=== PATIENT | female | born 1965 | race Caucasian/White ===

== ENCOUNTER 2022-04-18 08:14 | Outpatient (CLI) | payer OTHER, SELFPAY ==
--- NOTE | 2022-04-18 08:15 | CRLHL7_ITS ---
For Patients: As a result of the Century Cures Act, medical imaging exams and procedure reports are released immediately into your electronic medical record. You may view this report before your referring provider. If you have questions, please contact your health care provider. Final Report: ULTRASOUND-GUIDED LEFT BREAST BIOPSY AND POST-BIOPSY DIGITAL MAMMOGRAM FOR BIOPSY MARKER PLACEMENT, 04/18/2022 CLINICAL HISTORY: Suspicious lesion. COMPARISON STUDIES: Ultrasound and mammogram 04/16/22. TECHNIQUE: Real-time ultrasound with image documentation was used for targeting the breast lesion. Core biopsy specimens were obtained using an automated gun with a 18- gauge biopsy needle. Post-biopsy CC and ML digital mammograms were obtained to document position of the biopsy marker. CONSENT and TIME OUT: The procedure, risks, and alternatives were explained to the patient and a consent was signed. [place] Protocol was followed including pre-procedure verification that relevant information/documentation was available, reviewed and properly matched to the patient; consent accurate and complete; and equipment and supplies available. Time Out was conducted just prior to starting procedure to verify the four required elements: patient identity, correct side/site marked (if applicable), procedure, relevant images/results properly labeled and displayed (if applicable). PROCEDURE: The patient was positioned supine on the ultrasound table. The breast was prepped with ChloraPrep. 8 cc 1 percent lidocaine used for local anesthesia. Core samples were obtained. A sterile metal biopsy clip was placed percutaneously to libby the lesion position within the breast. The specimens were placed in 10% formalin and sent to the pathology department. Pressure was held on the biopsy site until all bleeding subsided. The skin incision was closed with Steri-Strips. An ice pack was positioned over the biopsy site. Post-biopsy instructions were reviewed with the patient, and a written copy was given to her. LATERALITY: LEFT breast. LESION: Solid nodule with adjacent distortion measuring 5 x 4 x 5 millimeters at 9 o`clock 1 cm from the nipple. SUSPICION FOR MALIGNANCY: High. NUMBER OF SAMPLES: 6 BIOPSY CLIP SHAPE: Coil PROXIMITY OF CLIP TO TARGET: Within. IMPRESSION: Ultrasound-guided breast biopsy. When the pathology report is available, an addendum to this report will be made. ACR not applicable Dictated by Rufino Sarabia MD @ 04/18/2022 10:14:52 AM PT/Dictated by: Rufino Sarabia MD @ 04/18/2022 10:14:00 AM ----- ADDENDUM ----- Pathology consistent with grade 1/3 invasive ductal carcinoma. This is concordant. Appropriate action recommended. Pretreatment breast MRI is suggested. Dictated by Rufino Sarabia MD @ Apr 18 2022 10:14AM Signed by:?Rufino Sarabia MD @04/18/2022 12:52:03 PM (Electronic Signature)
--- NOTE | 2022-04-18 09:00 | CRLHL7_ITS ---
For Patients: As a result of the Century Cures Act, medical imaging exams and procedure reports are released immediately into your electronic medical record. You may view this report before your referring provider. If you have questions, please contact your health care provider. PLEASE SEE LEFT ULTRASOUND-GUIDED BIOPSY OF SAME DAY. CRL:bhe be/Dictated by: Rufino Sarabia MD @ 04/18/2022 10:14:00 AM (Electronically Signed)
== END 2022-04-18 08:15 | disposition home or self-care (01) ==
PROVIDERS: PCP Student in an Organized Health Care Education/Training Program; Visit Provider Student in an Organized Health Care Education/Training Program
DX: N63.20 Unspecified lump in the left breast, unspecified quadrant (principal); C50.912 Malignant neoplasm of unspecified site of left female breast; R92.8 Other abnormal and inconclusive findings on diagnostic imaging of breast
CPT/HCPCS: 19083; 76942; 77065; 88305; 88360; 88361; A4648; A4649

== ENCOUNTER 2022-04-29 13:01 | Outpatient (CLI) | payer OTHER, SELFPAY ==
--- NOTE | 2022-04-29 13:00 | CRLHL7_ITS ---
For Patients: As a result of the 21st Century Cures Act, medical imaging exams and procedure reports are released immediately into your electronic medical record. You may view this report before your referring provider. If you have questions, please contact your health care provider. BILATERAL BREAST MRI WITHOUT AND WITH GADOLINIUM, 04/29/2022 CLINICAL HISTORY: 56-year-old woman with newly diagnosed LEFT breast invasive ductal carcinoma 9 o???clock 1 cm from the nipple. She underwent an ultrasound-guided biopsy of 0.8 cm irregular lobulated spiculated and distinct hypoechoic mass. INDICATION FOR BREAST MRI: Staging of newly diagnosed breast cancer and screening of contralateral breast. Regional lymph nodes will also be assessed. COMPARISON STUDIES: Mammogram 04/10/2022. CONTRAST: 15 cc Dotarem. TECHNIQUE: The patient was positioned prone using a breast coil. Multiple imaging sequences were obtained using 1-1.5 mm thick slices with no gap. The image sequences include T2-weighted STIR in the axial plane, T1-weighted nonfat-saturated gradient echo in the axial plane, pre- and post-contrast T1-weighted FLASH 3D with fat suppression in the axial plane, and T1-weighted FLASH high-resolution 3D with fat suppression in the sagittal plane. Image post-processing was performed on a [employer] workstation. Complex 3D rendering including maximum intensity projections (MIPS) and volumetric renderings were obtained to optimize visualization of the extent of pathology and relationship to the nipple, skin, and chest wall. This aids in determining feasibility of breast conservation surgery. Subtraction, multiplanar reconstruction, mean curve determination, and angiogenesis mapping were also performed. The study was technically adequate. FINDINGS: Breast Density: Scattered fibroglandular tissue. Breast Background Enhancement: Mild. RIGHT Breast: No suspicious enhancement for malignancy. LEFT Breast: Mass enhancement central LEFT breast measures approximately 0.8 x 0.9 x 1.1 cm. There is biopsy clip associated with this abnormal enhancement. This corresponds to the biopsy-proven malignancy. No suspicious enhancement elsewhere LEFT breast. Lymph Nodes: Axillary lymph nodes are normal in size and morphology. IMPRESSIONS AND RECOMMENDATIONS: 1) Mass enhancement central LEFT breast measuring approximately 1.1 cm in greatest dimension, corresponds to the biopsy-proven malignancy. No evidence for malignancy elsewhere LEFT breast. 2) No evidence for malignancy RIGHT breast. 3) Axillary lymph nodes are preserved. 4) Recommend surgical/oncologic management. BI-RADS: BI-RADS Category 6: Known Biopsy-Proven Malignancy Liat Ramirez M.D. Body/Breast Radiologist [email or web address] JR/Dictated by: Liat Ramirez MD @ 04/30/2022 10:03:00 AM (Electronically Signed)
== END 2022-04-29 13:02 | disposition home or self-care (01) ==
PROVIDERS: PCP Student in an Organized Health Care Education/Training Program; Visit Provider Surgery
DX: C50.912 Malignant neoplasm of unspecified site of left female breast (principal); R59.9 Enlarged lymph nodes, unspecified
CPT/HCPCS: 77049; A9575

== ENCOUNTER 2022-05-03 12:15 | Outpatient (RCR) | payer OTHER, SELFPAY | END 2023-04-16 11:27 | disposition home or self-care (01) | PROVIDERS: PCP Student in an Organized Health Care Education/Training Program; Visit Provider Surgery | DX: I97.2 Postmastectomy lymphedema syndrome (principal); C50.312 Malignant neoplasm of lower-inner quadrant of left female breast; Z17.0 Estrogen receptor positive status [ER+]; Z51.89 Encounter for other specified aftercare ==

== ENCOUNTER 2022-05-07 07:48 | Day surgery (SDC) | payer OTHER, SELFPAY ==
[2022-05-07] MEDS: LACTATED RINGERS 1000 ML 1,000 ML 100 ML IV ×2 (08:00→11:25)
[2022-05-07 08:08] VITALS: BP 116/72; PULSE 69; RESP 16; TEMP 36.8; O2SAT 95; BMI 22.8
[2022-05-07] MEDS: ETHYL CHLORIDE 1 APPLICATION 1 APPLIC TOPICAL (08:23)
[2022-05-07] MEDS: SODIUM CHLORIDE 0.9 % (FLUSH) 10 ML SYRINGE IVF (08:23)
--- NOTE | 2022-05-07 09:00 | CRLHL7_ITS ---
For Patients: As a result of the Century Cures Act, medical imaging exams and procedure reports are released immediately into your electronic medical record. You may view this report before your referring provider. If you have questions, please contact your health care provider. HISTORY: 56-year-old female. Left breast cancer. TECHNIQUE: Following lidocaine injection, 1.0 millicuries of [id number] sulfur colloid was injected in the left breast for sentinel lymph node localization. Images were not obtained. Dictated by Peter Carson MD @ 05/07/2022 9:29:26 AM (Electronically Signed)
--- NOTE | 2022-05-07 09:15 | CRLHL7_ITS ---
For Patients: As a result of the Century Cures Act, medical imaging exams and procedure reports are released immediately into your electronic medical record. You may view this report before your referring provider. If you have questions, please contact your health care provider. BREAST WIRE LOCALIZATION USING ULTRASOUND GUIDANCE CLINICAL HISTORY: Invasive ductal carcinoma. LATERALITY: LEFT breast 9 o`clock 1 cm from the nipple . LESION: Hypoechoic spiculated mass measuring 5 x 4 x 5 millimeters. LOCALIZATION WIRE: [place] hookwire. TECHNIQUE: The localization wire was placed using real-time ultrasound guidance with image documentation. Cranial-caudal and medial-lateral digital mammograms were obtained after localization wire placement. CONSENT and TIME OUT: The procedure, risks, and alternatives were explained to the patient and a consent was signed. [place] Protocol was followed including pre-procedure verification that relevant information/documentation was available, reviewed and properly matched to the patient; consent accurate and complete; and equipment and supplies available. Time Out was conducted just prior to starting procedure to verify the four required elements: patient identity, correct side/site marked (if applicable), procedure, relevant images/results properly labeled and displayed (if applicable). PROCEDURE: The skin was prepped with ChloraPrep and 3 cc of 1% lidocaine was injected for local anesthesia. The localization wire was placed within or near the targeted breast lesion using ultrasound guidance. The patient tolerated the procedure well. PROXIMITY OF WIRE TO LESION: Immediately adjacent to the lesion and clip. Reviewed with Dr. Montes. IMPRESSION: Successful breast wire localization. ACR not applicable A lay language report of this examination will be provided to the patient. Dictated by Rufino Sarabia MD @ 05/07/2022 10:25:14 AM /Dictated by: Rufino Sarabia MD @ 05/07/2022 10:25:00 AM (Electronically Signed)
--- NOTE | 2022-05-07 09:58 | CRLHL7_ITS ---
For Patients: As a result of the Cures Act, medical imaging exams and procedure reports are released immediately into your electronic medical record. You may view this report before your referring provider. If you have questions, please contact your health care provider. LEFT BREAST SPECIMEN RADIOGRAPH INDICATION: Lumpectomy TECHNIQUE: Two images of the LEFT breast specimen. IMPRESSION: Specimen contains the primary lesion, the biopsy clip and the localization wire. ACR not applicable A lay language report of this examination will be provided to the patient. Dictated by Rufino Sarabia MD @ 05/07/2022 11:43:44 AM jj/Dictated by: Rufino Sarabia MD @ 05/07/2022 11:43:00 AM (Electronically Signed)
--- NOTE | 2022-05-07 10:00 | CRLHL7_ITS ---
For Patients: As a result of the Cures Act, medical imaging exams and procedure reports are released immediately into your electronic medical record. You may view this report before your referring provider. If you have questions, please contact your health care provider. PLEASE SEE ULTRASOUND-GUIDED LEFT BREAST WIRE LOCALIZATION PERFORMED SAME DAY CRL:ayde messer/Dictated by: Rufino Sarabia MD @ 05/07/2022 10:25:00 AM (Electronically Signed)
[2022-05-07] MEDS: BUPIVACAINE 0.25% 30 ML INJECTION (11:15)
--- NOTE | 2022-05-07 11:16 | P.GSOP_ITS ---
Operative Note Date of procedure: 05/07/22 Type of Procedure: 1. Left breast lumpectomy 2. [place] lymph node biopsy Procedure Description: After discussing the risks and benefits of the procedure, the patient signed informed consent.? The operative site was marked and the patient was brought to the operating room and placed on the operating table in supine position.? Care was taken to pad the patient's pressure points.?? The patient was then given sedation by anesthesia.?? The operative site was then prepped and draped in the usual sterile fashion.? A time-out was then performed. Prior to arrival in the operating room, the patient was taken to radiology where a wire was placed to localize the previously placed clip. In that pre op I injection radiocolloid periareolar. The patient was then brought to the operating room where anesthesia was induced. I injected 3 ml of lymphazurin blue and performed breast massage for a period of 5 minutes. The left breast and axilla were prepped and draped in the usual sterile fashion. Timeout was confirmed. Local anesthesia was infiltrated into a curvilinear incision in the 6:00 position at the location near the tip of the wire. Using electrocautery, the segment of breast tissue containing the tip of the wire was excised. This was sent for evaluation. Radiology called back and confirmed that the clip, wire and biopsy site were present within the specimen. Pathology then called back and confirmed that the margins were appropriate. We then elected to perform the sentinel node aspect of the procedure. Using the neoprobe, the area of maximal counts was identified. Local anesthesia was infiltrated into the skin and an incision was made. This was carried down to the subcutaneous tissue using electrocautery. Using a combination of blunt dissection and electrocautery, a hot and blue node was resected. One additional node was resected in a similar fashion, taking care to tie off the lymphatics. These were sent to pathology for permanent evaluation. Additional local anesthesia was infiltrated. Hemostasis was assured. The wounds were then closed in layers using absorbable suture, and Dermbond was placed over the wounds. An Karl bandage was used to compress the tissues and decrease the risk of seroma formation. The patient was awakened without incident and taken to PACU in stable condition. Sponge, needle and instrument counts were correct x3 at the termination of the case. Findings: [place] node biopsy was performed using Isosulfan blue dye and radiotracer; all identified blue and significantly radioactive nodes as well as any additional suspicious nodes were removed. A left breast lumpectomy was performed with confirmation of wire and clip. Pathology confirmed negative margins. Anesthesia: MAC and local Surgeon: Irma Montes MD Estimated blood loss (mL): 10 Condition: stable Disposition: same day
[2022-05-07] MEDS: ISOSULFAN BLUE 5 ML VIAL 10 ML SUBCUT (11:20)
[2022-05-07 11:35] VITALS: BP 125/86; PULSE 77; RESP 16; TEMP 36.2; O2SAT 95
--- NOTE | 2022-05-07 11:40 | W.ANESCHARGE ---
Anesthesia Charges Start Date/Time Anesthesia Start Date: 05/07/22 Anesthesia Start Time: 10:03 Stop Date/Time Anesthesia Stop Date: 05/07/22 Anesthesia Stop Time: 11:36 Summary Emergency: No
[2022-05-07 11:45] VITALS: BP 137/65; PULSE 70; RESP 16; O2SAT 95
--- NOTE | 2022-05-07 11:45 | W.ANESCHARGE ---
Anesthesia Charges Start Date/Time Anesthesia Start Date: 05/07/22 Anesthesia Start Time: 10:03 Stop Date/Time Anesthesia Stop Date: 05/07/22 Anesthesia Stop Time: 11:36 Summary Emergency: No
[2022-05-07 12:00] VITALS: BP 139/86; PULSE 73; RESP 16; O2SAT 98
[2022-05-07] MEDS: OXYCODONE 5 MG TABLET PO ×2 (12:06→12:41)
[2022-05-07 12:15] VITALS: BP 147/84; PULSE 65; RESP 16; O2SAT 98
[2022-05-07 12:30] VITALS: BP 151/76; PULSE 58; RESP 16; O2SAT 96
== END 2022-05-07 13:28 | disposition home or self-care (01) ==
LOC: OR 11:24 → SS 12:31 → OR 13:02
PROVIDERS: PCP Student in an Organized Health Care Education/Training Program; Visit Provider Surgery
PROC: (CPT 19301; principal; 2022-05-07 10:00)
DX: C50.912 Malignant neoplasm of unspecified site of left female breast (principal); Z17.0 Estrogen receptor positive status [ER+]
CPT/HCPCS: 19301; 38500; 00400; 01610; 19285; 38792; 76942; 77065; 88307; 88341; 88342; 88361; 97165; 97535; A9270; A9541; C1769; J2250; J2704; J3010; J3490; J7120

== ENCOUNTER 2022-07-17 13:00 | Outpatient (CLI) | payer OTHER, SELFPAY ==
--- NOTE | 2022-07-17 13:00 | CRLHL7_ITS ---
For Patients: As a result of the Cures Act, medical imaging exams and procedure reports are released immediately into your electronic medical record. You may view this report before your referring provider. If you have questions, please contact your health care provider. DXA BONE MINERAL DENSITY STUDY, 07/17/2022 Reason for exam: Malignant neoplasm of left breast. Current height (inches): 61 Weight (lbs.): 125.0 Menopause age: 55 Ethnicity: White 1. Have you had a previous hip or vertebral fracture? No. 2. Have you had any fractures during your adult life which did not result from significant trauma (e.g., auto accident)? No. 3. Did either of your parents have a hip fracture? No. 4. Do you smoke? Yes. 5. Have you ever taken Glucocorticoids? No. 6. Do you have rheumatoid arthritis? Yes. 7. Do you have secondary osteoporosis? No. 8. Do you drink 3 or more alcoholic drinks per day? No. 9. Are you being treated for osteoporosis? No. 10. Have you ever taken any of the following medications: Actonel, Evista, Fosamax, Miacalcin, Reclast, Boniva, Forteo, HRT (i.e., estrogen/hormone therapy), Protelos, Prolia, Vitamin D, Calcium, other ??? please specify. ANSWER: Yes; vitamin D and calcium. 11. Do you have any of the following medical conditions: Anorexia or bulimia, asthma or emphysema, end stage renal disease, hyperparathyroidism, any seizure disorders, cancer, inflammatory bowel diseases, hysterectomy, other ??? please specify. ANSWER: No. 12. What was your maximum height (inches)? 63. 13. Do you perform weight bearing exercise regularly? Yes. 14. Do you regularly consume dairy products? Yes. 15. Do you drink caffeinated beverages? Yes. 16. At what age did your period start? 15. 17. Are you premenopausal? No. 18. How many full-term pregnancies have you had? 3. 19. Have you ever missed your period for more than 6 months in a row (not including or menopause)? Yes. TECHNIQUE: Bone mineral density study was performed using the [employer]. FINDINGS: The results of the study expressed as bone mineral density (BMD) are as follows: Lumbar Spine L1 to L4: BMD: 1.034 g/cm2. T-score: -0.1. Z-score: 1.1. Neck Left: BMD: 0.762 g/cm2. T-score: -0.8. Z-score: 0.4. Right: BMD: 0.715 g/cm2. T-score: -1.2. Z-score: 0.0. Total Left: BMD: 0.938 g/cm2. T-score: 0.0. Z-score: 0.8. Right: BMD: 0.920 g/cm2. T-score: -0.2. Z-score: 0.6. IMPRESSION: Osteopenia. FRAX 10-year Fracture Risk Major Osteoporotic Fracture: 8.5% Hip Fracture: 1.0% Reported Risk Factors: [place] () Neck BMD = 0.715, BMI = 32.6, smoking, rheumatoid arthritis. RUFINO TOWNSEND M.D. Diagnostic Radiologist [email or web address] Transcribed: 4:[address]/Dictated by: Rufino Townsend MD @ 07/17/2022 3:42:00 PM (Electronically Signed)
--- OUTSIDE RECORDS SUMMARY | 2022-07-17 13:09 | XMS_ITS | Encounter Summary ---
:1965 Author Organization [facility] Address [address] [place] [id number] Care Team Providers Name Role Phone Unavailable Primary Care Provider Unavailable Reason for Visit Radiation Therapy (Routine) - Authorized Specialty Diagnoses / Procedures Referred By Contact Refer red To Contact Diagnoses Malignant Neoplasm Of Breast Lower Inner Quadrant Female Left (HCC) Gabriella Garza M.D. [facility] Procedures Prior Auth Rad Tx [place] RADTN [place] DEL >=1 MEV COMPLEX [address] [place] [address] Referral ID Status Reason Start Date Expiration Date Visits V isits Requested Authorized [id number] Authorized 06/10/2022 05/15/2023 19 19 Encounter Details Date Type Department Care Team Description 06/13/2022 Hospital Encounter Department of Radiation [facility] [place] [address] [facility] [address] [place] [id number] [phone] Social History Tobacco Use Types Packs/Day Years Used Date Smoking Tobacco: Former Cigarettes 1 40 Quit : 04/28/2022 Smokeless Tobacco: Never Alcohol Use Standard Drinks/Week Comments Not Currently 0 (1 standard drink = 0.6 oz pure alcoho l) Occasional alcohol recently Sex Assigned at Date Recorded Not on file documented as of this encounter Medications at Time of Discharge Medication Sig Dispensed Refills Start Date End Date albuterol 90 mcg/actuation Inhale 1-2 puffs. 0 inhaler folic acid 1 mg tablet Take 1 mg by mouth 0 03/06 daily. ibuprofen (ADVIL,MOTRIN) 0 02/07/2022 200 mg tablet methotrexate 2.5 mg tablet Take 15 mg by mouth. 0 03/06/2022 predniSONE (DELTASONE) 5 Take 3 tablets x 5 0 04/2022 mg tablet days, 2 tabs x 5 days, 1 tab x 5 days, then stop. As needed flare. documented as of this encounter Plan of Treatment Not on filedocumented as of this encounter Visit Diagnoses Not on filedocumented in this encounter
--- OUTSIDE RECORDS SUMMARY | 2022-07-17 13:09 | XMS_ITS | Encounter Summary ---
:1965 Author Organization [facility] Address [address] [place] [id number] Care Team Providers Name Role Phone Unavailable Primary Care Provider Unavailable Reason for Visit Radiation Therapy (Routine) - Authorized Specialty Diagnoses / Procedures Referred By Contact Refer red To Contact Diagnoses Malignant Neoplasm Of Breast Lower Inner Quadrant Female Left (HCC) Gabriella Garza M.D. [facility] Procedures Prior Auth Rad Tx [place] RADTN TX DEL >=1 MEV COMPLEX [address] [place] [address] Referral ID Status Reason Start Date Expiration Date Visits V isits Requested Authorized [id number] Authorized 06/10/2022 05/15/2023 19 19 Encounter Details Date Type Department Care Team Description 06/14/2022 Hospital Encounter Department of Radiation Art [facility] I[facility] [place] [address] [facility] [address] [place] [id number] [phone] Social History Tobacco Use Types Packs/Day Years [...]
--- OUTSIDE RECORDS SUMMARY | 2022-07-17 13:09 | XMS_ITS | Clinical Summary ---
:1965 Author Organization [employer] [facility] [place] [address] Care Team Providers Name Role Phone Donya Ortez Primary Care Provider Malik Clark RN Unavailable Allergies Active Allergy Reactions Severity Noted Date Comments Bupropion Behavioral Disturbances 11/26/2011 suic idal Sertraline Behavioral Disturbances 11/27/2011 Medications Medication Sig Dispensed Refills Start End Date Status Date albuterol HFA Inhale 1-2 Puffs 1 Each 0 Active (PRO-AIR; by mouth every 4 2 VENTOLIN; hours if needed PROVENTIL) 90 for Shortness of mcg/actuation Breath 1st inhalerIndication choice. s: Wheezing, Cough, Post-viral reactive airway disease ibuprofen (ADVIL; 0 Ac tive MOTRIN) 200 mg 2 tablet folic acid 1 mg Take 1 Tablet (1 90 Tablet 3 Active tabletIndications mg) by mouth once 2 : Rheumatoid daily. arthritis involving both feet with positive rheumatoid factor (HC) predniSONE Take 3 tablets x 30 Tablet 1 Ac tive (DELTASONE) 5 mg 5 days, 2 tabs x 2 tabletIndications 5 days, 1 tab x 5 : Rheumatoid days, then stop. arthritis As needed flare. involving both feet with positive rheumatoid factor (HC) methotrexate Take 6 Tablets 77 Tablet 0 Ac tive (RHEUMATREX) 2.5 (15 mg) by mouth 2 mg once weekly. tabletIndications : Rheumatoid arthritis involving both feet with positive rheumatoid factor (HC) adalimumab 40 Inject 40 mg 2 Each 2 Act zenon mg/0.4 mL subcutaneous 2 pnktIndications: every 2 weeks. Rheumatoid Citrate free arthritis involving both feet with positive rheumatoid factor (HC) methotrexate Take 15 mg by 30 Tablet 2 07/15/20 Dis continued (RHEUMATREX) 2.5 mouth once 2 22 (R eorder mg weekly. (E-cancel not tabletIndications se nt)) : Rheumatoid arthritis involving both feet with positive rheumatoid factor (HC) predniSONE Take 3 tablets x 30 Tablet 1 07/15/20 Di scontinued (DELTASONE) 5 mg 5 days, 2 tabs x 2 22 (Reorder tabletIndications 5 days, 1 tab x 5 (E-cancel not : Rheumatoid days, then stop. sent)) arthritis As needed flare. involving both feet with positive rheumatoid factor (HC) methotrexate Take 6 Tablets 30 Tablet 2 07/15/20 Di scontinued (RHEUMATREX) 2.5 (15 mg) by mouth 2 22 (Reorder mg once weekly. (E-canc el not tabletIndications se nt)) : Rheumatoid arthritis involving both feet with positive rheumatoid factor (HC) adalimumab 40 Inject 40 mg 2 Each 2 07/17/20 Dis continued mg/0.4 mL subcutaneous 2 22 (Reorde r pnktIndications: every 2 weeks. 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 Plan:Routine screening Degenerative arthritis of spine Encounters Date Type Specialty Care Team Description 07/16/2022 Telephone Duarte Wong, Prior Au thorization DO (HUMIRA adalimu mab 40 mg/0.4 mL pnkt) 07/15/2022 Telemedicine Duarte Wong, Teleheal th (No vitals DO taken); Follow Up (RA discuss Treatme nt) 07/15/2022 Telephone Duarte Wong Medicati on Problem DO 07/15/2022 Travel 06/07/2022 Office Visit Beatrice Stark, SENIOR TERADATA DEVELOPER Consult (Lo w dose lung screening) 06/07/2022 Hospital Encounter Beatrice Stark, JERONIMO Encou nter for screening for malignant n eoplasm of lung in form er smoker who quit in pas t 15 years with 30 p ack year history or grea ter 06/07/2022 Travel 06/06/2022 Telephone Duarte Wong, Question s; Screening DO (Cancel / Carolina edule) 05/28/2022 Office Visit Irma Montes Post-op (Left b connie Farfan MD lumpectomy-sent inel lymph node biop sy 05/07/22) 05/28/2022 Travel 05/15/2022 Orders Only Staff, Other <No scans attac hed> Clinical 05/09/2022 Orders Only Irma Montes <No scans attac hed> MD Naheed 05/07/2022 Office Visit Irma Montes MD 05/07/2022 Orders Only Scanner <No scans attac hed> 05/07/2022 Orders Only Scanner <No scans attac hed> 05/07/2022 Orders Only Staff, Other <No scans attac hed> Clinical 05/07/2022 Lab Requisition Irma Montes MD 05/07/2022 Lab Requisition Irma Montes MD 05/07/2022 Travel 05/01/2022 Telephone Duarte Wong, Question s DO 05/01/2022 Transcribe Orders Irma Montes MD 04/30/2022 Office Visit Irma Montes Consult (Left b connie Farfan MD cancer) 04/30/2022 Travel 04/29/2022 Orders Only Scanner <No scans attac hed> 04/29/2022 Telephone Beatrice Stark, SENIOR TERADATA DEVELOPER Referral 04/26/2022 Office Visit Donya Ortez DO Physical (5 7 years old female ); Cance r (Had biopsy - positi ve for breast cancer - plans to stay with [facility] - has an MRI 04/29 and Surgeon consult 04/30 ); Preopera tive Exam (Would like a p ian done - meets with nelson casillas 04/30 as well - unsur e of surgery ); Ambrose ashely Dependence (Hop ing to quit on Saturday 04/28 - will start usin g the patch ) 04/26/2022 Travel 04/23/2022 Orders Only Donya Ortez, DO <No scans a ttached> 04/19/2022 Telephone Donya Ortez, DO Results 04/18/2022 Orders Only Scanner <No scans attac hed> 04/18/2022 Orders Only Scanner <No scans attac hed> 04/18/2022 Lab Requisition Unknown, Doctor 04/16/2022 Ancillary Procedure 04/16/2022 Ancillary Procedure from Last 3 Months Immunizations Name Administration Dates Next Due COVID-19 vaccine (Moderna 100mcg/0.5mL) PF, MDV 11/04/2020, 10/05/2020 Influenza, IIV3 (Age >=3 years) 06/29/2009 Influenza, IIV4 (=>6mos) MDV 07/27/2019 MMR 09/02/1997 Pneumococcal Poly,23-Valent (Pneumovax) 2020 Td (Age >=7 Years) 09/02/1997 Tdap 12/26/2009 Family History Medical History Relation Name Comments Alcohol/Drug Father accidently head injury Hypertension Mother Other Mother eye problems. [place] Cancer-breast No Family History Cancer-ovarian No Family History Relation Name Status Comments Father Mother Social History Tobacco Use Types Packs/Day Years Used Date Current Some Day Smoker Cigarettes 1 40 Quit : 01/2019 Smokeless Tobacco: Never Used Tobacco Cessation: Counseling Given: Yes Comments: occasionaL, 4-5 Alcohol Use Standard Drinks/Week Comments Yes 6 (1 standard drink = 0.6 oz pure alcoho l) 6-8 drinks per week Alcohol Habits Answer Date Recorded How often do you have a drink containing alcohol? 2-4 times a month 11/10/2019 How many drinks containing alcohol do you have on a 3 or 4 11/10/2019 typical day when you are drinking? How often do you have six or more drinks on one Less than mo nthly 11/10/2019 occasion? Comment: 6-8 drinks per week 03/06/2022 Sex Assigned at Date Recorded Not on file COVID-19 Exposure Response Date Recorded In the last 10 days, have you been in contact with No / Unsu re 07/15/2022 6:26 AM CDT someone who was confirmed or suspected to have Coronavirus/COVID-19? Obstetrics History Last Filed Vital Signs Vital Sign Reading Time Taken Comments Blood Pressure 125/75 06/07/2022 9:50 AM CDT Pulse 73 06/07/2022 9:50 AM CDT Temperature 36.4 ??C (97.6 ??F) 06/07/2022 9:50 AM CDT Respiratory Rate 16 06/07/2022 9:50 AM CDT Oxygen Saturation 98% 06/07/2022 9:50 AM CDT Inhaled Oxygen Concentration - - Weight 56.2 kg (123 lb 14.4 oz) 06/07/2022 9:50 AM CDT Height 156.2 cm (5' 1.5) 04/30/2022 2:09 PM CDT Body Mass Index 23.03 04/30/2022 2:09 PM CDT Plan of Treatment Upcoming Encounters Date Type Specialty Care Team Description 07/19/2022 Orders Only Lab, [place] 08/30/2022 Procedure Only Gabriel Gore MD [facility] 5 [phone] (Wo rk) 10/17/2022 Telemedicine Duarte Wong nn, DO [address] [id number] (Wo rk) Health Maintenance Due Date Last Done Comments Zoster (shingles) series for age 1209/13/1983 50+ (1 of 2) Colonoscopy through age 75 2009 Tetanus booster 12/27/2019 12/26/2009, 09/02/1997 Pneumococcal series for age 19-64 2021 2020 (2 - PCV) COVID-19 vaccine series (4 - 10/04/2021 08/09/2021, 021, Booster for Moderna series) 10/05/2020 Influenza for age 50-64 05/30/2022 07/27/2019, 06/29/2009 Mammogram for age 45-75 04/18/2023 04/18/2022, 04/16/2022, 04/10/2022, Additional history exists Depression screening for age 12+ 04/29/2023 04/29/2022, , 10/31/2021, Additional history exists BMI (ht and wt on same day) for 04/30/2023 04/30/2022, 03/30, age 18+ 04/04/2022, Additional history exists Low Dose CT (for lung CA) age 0906/07/2023 06/07/2022 50-80 Pap test for age 21-65 11/10/2024 11/10/2019, 11/10/2019, 01/27/2012, Additional history exists Lipids for age 45-75 04/26/2027 04/26/2022, 01/20/2012, 07/04/2006, Additional history exists Tdap Completed 12/26/2009 Hepatitis C screening for age Completed 04/26/2022 18-79 Procedures Procedure Name Priority Date/Time Associated Comments Diagnosis CT CHEST SCREENING LOW Routine 06/07/2022 10:47 Encounter for Results for this DOSE WO CONTRAST AM CDT screening for procedure are in malignant neoplasm the resul ts of lung in former section. smoker who quit in past 15 years with 30 pack year history or greater SCAN CORRESP-IMAGING 05/15/2022 12:00 Res ults for this AM CDT procedure are i n the results section. LAB TRACKING EVENT Routine 05/07/2022 11:17 AM CDT LAB TRACKING EVENT Routine 05/07/2022 10:59 AM CDT PATH TISSUE EXAM Routine 05/07/2022 10:44 Results for this AM CDT procedure are i n the results section. MSO AP SEND-OUT Routine 05/07/2022 10:44 AM CDT NM INJ SENTINEL NODE SAROJ 05/07/2022 12:00 Malignant neopla sm Results for this BREAST LEFT AM CDT of female breast, procedure are in unspecified the results estrogen receptor section. status, unspecified laterality, unspecified site of breast (HC) SCAN-OPERATIVE/PROCEDUR 05/07/2022 12:00 Results for this E REPORT AM CDT procedure are i n the results section. SCAN-OPERATIVE/PROCEDUR 05/07/2022 12:00 Results for this E REPORT AM CDT procedure are i n the results section. SCAN 05/07/2022 12:00 Results for this CORRESP-DIAGNOSTICS AM CDT procedur e are in the results section. SCAN-MRI INTERPRETATION 04/29/2022 12:00 AM CDT BASIC METABOLIC PANEL Routine 04/26/2022 1:52 Annual physical Results for this PM CDT exam procedure are i n the results section. LIPID PANEL W REFLEX Routine 04/26/2022 1:52 Screening for lip id Results for this MEASURED LDL PM CDT disorders procedure are i n the results section. ANTI HCV Routine 04/26/2022 1:52 Need for hepatitis Result s for this PM CDT C screening test procedure a re in the results section. LAB TRACKING EVENT Routine 04/18/2022 8:45 AM CDT PATH BREAST CORE BIOPSY Routine 04/18/2022 8:45 R esults for this AM CDT procedure are i n the results section. SCAN-MAMMOGRAPHY REPORT 04/18/2022 12:00 Results for this AM CDT procedure are i n the results section. US BIOPSY BREAST NEEDLE SAROJ 04/18/2022 12:00 Abnormal mamm ogram Results for this W UMER W GUIDE LEFT AM CDT procedur e are in the results section. SCAN-OPERATIVE/PROCEDUR 04/18/2022 12:00 Results for this E REPORT AM CDT procedure are i n the results section. US BREAST UNILATERAL SAROJ 04/16/2022 3:11 Abnormal mammogra m Results for this LEFT LIMITED PM CDT procedure are i n the results section. XR MAMMO MATTHIEU UNI ADDL SAROJ 04/16/2022 3:01 Abnormal mammog dawn Results for this VIEWS LEFT PM CDT procedure are i n the results section. from Last [address] CHEST SCREENING LOW DOSE WO CONTRAST (06/07/2022 10:47 AM CDT) Anatomical Region Laterality Modality Computed Tomography Specimen (Source) Anatomical Location Collection Method / Collectio n Time Received Time / Laterality Volume Impressions 06/10/2022 6:44 AM CDT Lung-RADS Category 1: Negative. No pulmonary nodules. Recommend continued annual screening wit h LDCT in 12 months. Please note that all CT scans at this fa cility use dose modulation, iterative reconstruction and/or weight-b ased dosing when appropriate to reduce radiation dose to as low as reaso nably achievable. ?? Dictated by: Vicki Benítez MD @06/07/2022 11:21: 17 AM CRL:rcd Narrative 06/10/2022 6:44 AM CDT For Patients: As a result of the Cures Act, medical imaging exams and procedure reports are released immediately into your electronic medical record. ??You may view this repo rt before your referring provider. ?? If you have questions, please contact [facility] care provider. CT CHEST SCREENING LOW-DOSE WITHOUT CONT RAST, 06/07/2022 INDICATION: Lung cancer screening. TECHNIQUE: CT chest without contrast. COMPARISON: None. FINDINGS: Cardiovascular structures: Heart size is normal. Thoracic aorta and main pulmonary artery are normal in caliber. Mediastinum and ezra: No sign of mass or adenopathy. Thyroid is normal. Lungs: Minimal linear scarring of the RI GHT middle lobe, lingula of the LEFT upper lobe and LEFT lung base. No p ulmonary nodules, mass or consolidation. Mild central bronchial wa ll thickening, likely mild bronchitis. Airways are clear. Pleura and pericardium: No effusions. Chest wall and axillae: No mass or adeno amanda. Bones: Degenerative disc disease, lumbar spine. No lytic or osteoblastic lesions. Upper abdomen: Unremarkable. Beatrice Satrk SENIOR TERADATA DEVELOPER CT SCAN CORRESP-IMAGING (05/15/2022 12:00 AM CDT) Narrative 05/15/2022 12:00 AM CDT This result has an attachment that is no t available. Ordered by an unspecified provider. Other Clinical Staff OTHER LAB TRACKING EVENT (05/07/2022 11:17 AM CDT)Only the most recent of3 results within the time period is included. Specimen Anatomical Collection Method Collection Time Receive d Time (Source) Location / / Volume Laterality Other (Other) Client Collect / 05/07/2022 11:17 2021 Unknown AM CDT 12:46 PM CDT Irma Montes MD LAB BILL ONLY Performing Organization Address City/State/ZIP Code Phon e Number [facility] [address] [place] [address] LABORATORY-CENTRAL 2000 LABORATORY MSO AP SEND-OUT (05/07/2022 10:44 AM CDT) Specimen Anatomical Collection Method Collection Time Receive d Time (Source) Location / / Volume Laterality Other (Left 05/07/2022 10:44 05/16/2022 3:40 Breast Lump) AM CDT PM CDT Irma Montes MD LABORATORY Performing Organization Address City/State/ZIP Code Phon e Number [facility] [address] [place] [address] LABORATORY-CENTRAL 1999 LABORATORY PATH TISSUE EXAM (05/07/2022 10:44 AM CDT) Component Value Ref Test Analysis Performed At Patholo gist Range Method Time Signature Case Report Pathology Report ?Case: [id number] ? 05/29/2022 D[facility]UV Authorizing Provider: ??Irma Simpson MD ??Collected: ? 05/07/2022 1044 ? 11:03 AM HEALTH Ordering Location: ? [facility] CENTRAL LAB ?Received: ?05/07/2022 1248 ? CDT JOHN SALTER Pathologist: ? Andrew Carlos MD ? ENTRAL Specimens: ?? A) - Left [place] [address] [facility] Lump ? LABORATORY ? B) - Left Axillary [place] Lymph Node 1 ? C) - Left Axillary [place] Lymph Node 2 ? Amendment 05/29/2022-The 05/29/2022 [facility] tissue was 11:03 AM HEALTH submitted to CDT LABORATORY-C [employer] ENTRAL for Oncotype DX LABORATORY for Breast Cancer testing. Please see attached scanned report. Final Diagnosis A) LEFT BREAST, LUMPECTOMY: 2021 [facility] Amendment 1. Invasive ductal carcinoma, Fannin grade I of III 11:03 AM HEALTH electronically ?a. Size: 7 mm CDT LABORATORY -C signed by ?b. Core biopsy site is associated with tumor ENTRAL Terrance, 2. Margins: LABORATORY MD Andrew on ?a. Invasive carcinoma is 3 mm from the anterior margin 05/29/2022 at 3. Breast Ancillary Testing: Performed on prior case ([id number]) 11:03 AM ? a. Hormone Receptors: Electronically ? Estrogen receptor: Positive (99%, strong stai beckie) signed by ? Progesterone receptor: Positive (43%, moderat e staining) Sandi Montalvo ? b. HER2 by IHC: Negative (1+ by manual morphometry) ? MD Yolanda on 4. Ki67 (performed on A6): 1% by image analysis 05/09/2022 at 5. Proliferative fibrocystic change 9:40 AM B) LEFT AXILLARY SENTINEL LYMPH NODE, 1, BIOPSY: 1. Negative for malignancy in 1 lymph node (0/1) 2. Incidental destinee nevus C) LEFT AXILLARY SENTINEL LYMPH NODE, 2, BIOPSY: 1. Negative for malignancy in 1 lymph node (0/1) Comment Ki-67 results 05/29/2022 [facility] were interpreted 11:[address] Hicks. CDT LABORATORY-C ENTRAL LABORATORY Clinical Left breast 05/29/2022 [facility] Information cancer 11:03 AM HEALTH CDT LABORATORY-C ENTRAL LABORATORY Gross A) Received fresh, labeled w ith the patient's name and left breast tissue, is a 5.5 (SI) x 4.2 (ML) x 3.0 (AP)??cm wirelocalized breast lumpectomy specimen.??The wire is identified within the specimen 05/29/2022 [facility] Description .?The specimen is inked b y the surgical staff in the OR as follows: 11:03 AM HEALTH Anterior--[place] CDT LABORATORY-C Posterior--Black ENTRAL Superior--Blue LABORATORY Inferior--Red Medial--Green Lateral--Yellow The specimen is serially sec tioned from superior to inferior into 10 slices revealing a??0.7 (ML) x 0.7 (AP) x 0.7 (SI)??cm lopes-white, firm and slightly ill-defined mass within slice(s) 2-4 with the following characteristics: Biopsy site change: Present in slices 2-5 Biopsy clip: Present in slice 3 Closest margin: Anterior Distance to margins: Anterior: 0.4 cm Posterior: 0.7 cm Inferior: >2.0 cm Superior: 0.8 cm Medial: 1.4 cm Lateral: 0.7 cm The remaining cut surfaces c onsist of approximately 60% adipose tissue and 40% fibrous tissue. No other lesions are identified. Water Pollution Scientist sections are submitted: 1. ??Slice 1, superior margin, perpendicular 2-3. ??Composite slice 2 to include mass and biopsy site froy nge, bisected 4-5. ??Composite slice 3 to include mass, area of clip, bise cted 6-7. ??Composite slice 4 to include mass, bisected 8. ??Slice 5 including anterior and medial margin 9. ??Slice 6, lateral half 10. ??Slice 7, medial half 11. ??Slice 8, medial half 12. ??Slice 9, lateral half 13. ??Slice 10, inferior margin, perpendicular An annotated photograph including sections taken is uploaded to the case. Time removed from patient: 1044 Time placed in formalin: 1115 Date removed and placed in formalin: 05/07/2022 Cold ischemic time < 60 mike antno. The specimen was fixed in formalin for a minimum of 6 hours and not longer than 72 hours. WILLIAM 05/07/2022 B) Received in formalin, lab eled with the patient's name and sentinel node #1 left breast, is a lopes-blue lymph node, measuring 1.7 cm in greatest dimension. ??The lymph node is trisected and entirely in 1 cassette. Time removed from patient: 1059 Time placed in formalin: 1059 Date removed and placed in formalin: 05/07/2022 Cold ischemic time < 60 mike anton. The specimen was fixed in formalin for a minimum of 6 hours and not longer than 72 hours. JONATHAN 05/07/2022 C) Received in formalin, lab eled with the patient's name and sentinel node #2 left breast, is 1 lopes-blue lymph node, measuring 1.0 cm in greatest diam. ??The lymph node is bisected and submitted entirely in 1 cassette. Time removed from patient: 1109 Time placed in formalin: 1109 Date removed and placed in formalin: 05/07/2022 Cold ischemic time < 60 mike anton. The specimen was fixed in formalin for a minimum of 6 hours and not longer than 72 hours. JONATHAN 05/07/2022 Intraoperative A) LEFT BREAST, LUMPECTOMY, INTRAOPERATIVE CONSULTATION (Gross Evaluation Only): 05/29/2022 [facility] Consultation 1. Tumor grossly identified 11:03 AM HEALTH 2. Biopsy site change is identified grossly CDT LABORATORY-C 3. Margins are grossly negative by 4 mm (the closest bryson n is anterior) ENTRAL LABORATORY Eva Fleming MD, 05/07/2022 1:15 PM Telepathology with Teetee Marshall (Food And Beverage Service Manager), No [facility] Intraoperative consultation, which may have included frozen section preparation, gross specimen examination, and/or cytology touch imprints/smears, was performed by a pathologist during the surgical procedure. ??This testing was performed at: [address] [address] Microscopic The final diagnosis is based on microscopic examination of appropriate sections of all specimens. 05/29/2022 [facility] Description 11:03 AM HEALTH S100 and CKAE1/AE3 is performed on block B1. CDT LABORATORY-C ENTRAL LABORATORY SYNOPTIC INVASIVE CARCINOMA OF THE BREAST: Resection 05/29/2022 [facility] REPORTING Breast.Invasive - All Specimens 11:03 [facility] 8th Edition - Protocol posted: 11/24/2019 T LABORATORY-C ENTRAL SPECIMEN LABORATORY ?? Procedure: ?Excision (less than total mastectomy) ?? Specimen Laterality: ?Left TUMOR ?? Tumor Site: ?Clock position ?? : ?9 o'clock Tumor Site: ?Distance from nipple (Centimeters): 1 cm Histologic Type: ?Tubular carcinoma Glandular (Acinar) / Tubular Differentiation: ?Score 1 Nuclear Pleomorphism: ?Score 2 Mitotic Rate: ?Score 1 Overall Grade: ?Grade 1 (scores of 3, 4 or 5) Tumor Size: ?Greatest d imension of largest invasive focus (Millimeters): 7 mm Tumor Focality: ?Single focus of invasive carcinoma Ductal Carcinoma In Situ (DCIS): ?Not identified Lobular Carcinoma In Situ (LCIS): ?Not identified Lymphovascular Invasion: ?Not identified Dermal Lymphovascular Invasion: ?No skin present Microcalcifications: ?Present in invasive carcinoma Microcalcifications: ?Present in non-neoplastic tissue Treatment Effect in the Breast: ?No known presurgical t herapy MARGINS Invasive Carcinoma Margins: ?Uninvolved by invasive car cinoma ?? Distance from Closest Margin (Millimeters): ?3 mm ?? Closest Margin(s): ?Anterior LYMPH NODES Regional Lymph Nodes: ?Uninvolved by tumor cells ?? Total Number of Lymph Nodes Examined: ?2 ?? Number of [place] Nodes Examined: ?2 PATHOLOGIC STAGE CLASSIFICATION (pTNM, AJCC 8th Edition) ?? Primary Tumor (pT): ?pT1b Regional Lymph Nodes Modifier: ?(sn): [place] node(s) evaluated. Regional Lymph Nodes (pN): ?pN0 Comment(s) Comment(s): ?Block for possible future ancillary testing: A6 (biopsy site present; defer to core [id number] if indicated) Breast Biomarker Reporting Template Left Breast Lump - A Protocol posted: 11/24/2019 ?? Test(s) Performed: ?Ki-67 ? Percentage of Cells with Nuclear Positivity: ?1 % ? Primary Antibody: ?MIB1 ?? Cold Ischemia and Fixati on Times: ?Meet requirements specified in latest version of the ASCO / CAP Guidelines ?? Testing Performed on Block Number(s): ?A6 METHODS ?? Fixative: ?Formalin ?? Image Analysis: ?Performed ? Method: ?Aperio Morphometric analysis ? Biomarkers Scored by Image Analysis: ?Ki-67 Comment(s) Comment(s): ?2173 cells analyzed for Ki-67 Additional 05/29/2022 [facility] Information Interpreted at [email or web address], Central Laboratory - [address], [place] [address] 11:03 AM HEALTH CDT LABORATORY-C ENTRAL LABORATORY Specimen Anatomical Collection Method Collection Time Receive d Time (Source) Location / / Volume Laterality Other (Left 05/07/2022 10:44 05/07/2022 Breast Lump) AM CDT 12:48 PM CDT Specimen 05/07/2022 10:44 05/07/2022 8:59 (specimen) (Left AM CDT PM CDT Axillary [place] Lymph Node 1) Specimen 05/07/2022 10:44 05/07/2022 8:59 (specimen) (Left AM CDT PM CDT Axillary [place] Lymph Node 2) Narrative This result has an attachment that is no t available. Irma Montes MD PATHOLOGY/CYTOLOGY Performing Organization Address City/State/ZIP Code Phon e Number [facility] [address] [place] [address] [place] [address] LABORATORY-CENTRAL 2000 LABORATORY NM INJ SENTINEL NODE BREAST LEFT (05/07/2022 12:00 AM CDT) Anatomical Region Laterality Modality Breast Left Other Narrative This result has an attachment that is no t available. Irma Montes MD [place] SCAN CORRESP-DIAGNOSTICS (05/07/2022 12:00 AM CDT) Narrative 05/07/2022 12:00 AM CDT This result has an attachment that is no t available. Ordered by an unspecified provider. Other Clinical Staff OTHER SCAN-OPERATIVE/PROCEDURE REPORT (05/07/2022 12:00 AM CDT) Narrative This result has an attachment that is no t available. Scanner OTHER SCAN-OPERATIVE/PROCEDURE REPORT (05/07/2022 12:00 AM CDT) Narrative This result has an attachment that is no t available. Scanner OTHER SCAN-MRI INTERPRETATION (04/29/2022 12:00 AM CDT) Narrative This result has an attachment that is no t available. Scanner OTHER LIPID PANEL W REFLEX MEASURED LDL [[id number]] (04/26/2022 1:52 PM CDT) [facility] Method Time Signature CHOLESTEROL,TOTAL 172 100 - 199 04/26/2022 [facility] mg/dL 11:48 PM CDT LABORATORY-[facility] LAB[facility]ATORY TRIGLYCERIDES 108 <150 04/26/2022 [facility] mg/dL 11:48 PM CDT [facility] HDL CHOLESTEROL 56 >40 mg/dL 04/26/2022 [facility] 11:48 PM CDT LAB[facility] NON-HDL 116 <145 04/26/2022 [facility] CHOLESTEROL mg/dl 11:48 PM CDT LAB[facility]ATORY-[facility] CHOL/HDL RATIO 3.07 <4.50 04/26/2022 [facility] 11:48 PM CDT [facility]AT[facility] LDL CHOLESTEROL 94 <=130 04/26/2022 [facility] mg/dL 11:48 PM CDT LAB[facility]ATORY-[facility] VLDL CHOLESTEROL 22 <=30 04/26/2022 [facility] mg/dL 11:48 PM CDT LAB[facility]AT[facility] LAB[facility] PROVIDER ORDERED RANDOM 04/26/2022 [facility] STATUS 11:48 PM CDT LAB[facility]ATORY-[facility] Specimen Anatomical Collection Method / Collection Time Recei hailey Time (Source) Location / Volume Laterality Blood BLOOD SPECIMEN / Venipuncture / 04/26/2022 1:52 2021 1:53 Unknown Unknown PM CDT PM CDT Donya Ortez DO CHEMISTRY Performing Organization Address City/State/ZIP Code Phon e Number [facility] [address] [place] [address] LABORATORY-CENTRAL 2000 LABORATORY ANTI HCV (04/26/2022 1:52 PM CDT) Patholo gist Method Time Signature HEPATITIS C Non-Reacti Non-Reacti 04/26/2022 [facility] ANTIBODY ve ve 11:25 PM CDT LABORATORY-[facility] Comment: Antibodies to HCV not detected; does not exclude the possibility of exposure to HCV. Specimen Anatomical Collection Method / Collection Time Recei hailey Time (Source) Location / Volume Laterality Blood BLOOD SPECIMEN / Venipuncture / 04/26/2022 1:52 2021 1:53 Unknown Unknown PM CDT PM CDT Donya Ortez DO SEND OUTS Performing Organization Address City/State/ZIP Code Phon e Number [facility] [address] [place] [address] LABORATORY-CENTRAL 2000 LABORATORY BASIC METABOLIC PANEL (04/26/2022 1:52 PM CDT) P athologist Signature SODIUM 140 135 - 145 04/26/2022 [facility] mmol/L 11:47 PM CDT LAB[facility]ATORY-[facility] LABORATORY POTASSIUM 3.9 3.5 - 5.0 04/26/2022 [facility] mmol/L 11:47 PM CDT LABORATORY-[facility] LABORATORY CHLORIDE 105 98 - 110 04/26/2022 [facility] mmol/L 11:47 PM CDT LABORATORY-[facility] LABORATORY CO2,TOTAL 25 21 - 31 04/26/2022 [facility] mmol/L 11:47 PM CDT LABORATORY-[facility] LABORATORY ANION GAP 10 5 - 18 04/26/2022 [facility] 11:47 PM CDT LABORATORY-[facility] LABORATORY GLUCOSE 88 65 - 100 04/26/2022 [facility] mg/dL 11:47 PM CDT LABORATORY-[facility] LABORATORY CALCIUM 9.4 8.5 - 10.5 04/26/2022 [facility] mg/dL 11:47 PM CDT LABORATORY-[facility] LABORATORY BUN 11 8 - 25 04/26/2022 [facility] mg/dL 11:47 PM CDT LABORATORY-[facility] LABORATORY CREATININE 0.69 0.57 - 04/26/2022 [facility] 1.11 mg/dL 11:47 PM CDT LABORATORY-CENT RAL LABORATORY BUN/CREAT RATIO 16 10 - 20 04/26/2022 [facility] 11:47 PM CDT LABORATORY-CENT RAL LABORATORY eGFR >90 >90 04/26/2022 [facility] mL/min/1.7 11:47 PM CDT LABORATORY-CENT 3m2 RAL LABORATORY Comment: As of 2021, eGFR is calcu lated by the CKD-EPI creatinine equation without race adjustment. eGFR can be inf luenced by muscle mass, exercise, and diet. The reported eGFR is an estimation only and is only applicable if the renal function is stable. Specimen Anatomical Collection Method / Collection Time Recei hailey Time (Source) Location / Volume Laterality Blood BLOOD SPECIMEN / Venipuncture / 04/26/2022 1:52 2021 1:53 Unknown Unknown PM CDT PM CDT Donya Ortez DO CHEMISTRY Performing Organization Address City/State/ZIP Code Phon e Number [facility] [address] [place] [address] LABORATORY-CENTRAL 2000 LABORATORY PATH BREAST CORE BIOPSY (04/18/2022 8:45 AM CDT) Component Value Ref Test Analysis Performed At [facility] gist Range Method Time Signature Case Report Pathology Report ?Case: [id number] ? 04/23/2022 [facility] Authorizing Provider: ??Unkn own, Doctor ?Collected: ? 04/18/2022 0845 ? 1:03 PM [facility] L[facility] Ordering Location: ? [facility] CENTRAL LAB ?Received: ?04/18/2022 1518 ? CDT L ABORATORY-C Pathologist: ? Andrew Carlos MD ? ENTRAL Specimen: ?Left Breast C ore Ultrasound Biopsy ? LABORATORY Amendment 04/22/2022 - Amendment issued to incorporate ancillary studies. 04/23/2022 [facility] 04/23/2022 - Amendment issued to incorporate ancillary Ki67 results. 1:03 PM HEALTH CDT LABORATORY-C ENTRAL LABORATORY Final A) LEFT BREAST, 9:00, 1 CM FROM NIPPLE, ULTRASOUND-DIMITRY DED CORE BIOPSY: 04/23/2022 [facility] Amendment Diagnosis 1. 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 a. Fannin grade: I of III; Fannin score: 3 of 9 CDT LABORATORY-C signed by ?? b. Angio-lymphatic invasion: Absent ENTRAL Porsha Hicks ?? c. Associated DCIS: Absent LABORATORY MD Sachin on 2. Ruptured benign duct with associated inflammatory reactio n 04/23/2022 at 3. Breast Ancillary Testing: ?? 1:03 PM ?a. Hormone Receptors: Amendment ?Estrogen receptor: Positive (99%, strong stai beckie) electronically ?Progesterone receptor: Positive (43%, moderat e staining) signed by Payal, ?b. HER2 by IHC: Negative (1+ by manual morphometry) ? Emma Velazquez, ?c. Ki-67: Deferred (insufficient tumor cells for surendra sis) on 04/22/2022 at 12:57 P M Electronic ally signed by Lukas Card MD for Andrew Carlos MD on 04/19/2022 at 9:48 AM Comment A) This is an image-guided b reast biopsy. The pathologic findings should be correlated with radiologic and clinical findings prior to treatment decisions. 04/23/2022 [facility] 1:03 PM HEALTH Case seen in consultation with Dr. Card. CDT LABORATORY-C ENTRAL LABORATORY Clinical 8 mm irregular 04/23/2022 [facility] Information lobulated 1:03 PM HEALTH spiculated CDT LABORATORY-C indistinct ENTRAL hypoechoic solid LABORATORY mass of the left breast, 9:00, 1 cm from the nipple Gross A) Label: ??Patient's name and left, per requisition for m 04/23/2022 [facility] Description Description: 8 Fibrofatty core biopsies 1:03 PM HEALTH Size: 0.3-1.5 cm in length by 0.2 cm in diameter CDT LABORATORY-C Ink color: Black ENTRAL The specimen is submitted in toto in one cassette. LABORATORY Cold ischemic time: Less salbador n 60 minutes, meets current ASCO/CAP guidelines. ?? The specimen was fixed in formalin for a minimum of 6 hours and not longer than 72 hours. SSS 04/18/2022 Microscopic The final diagnosis is based on microscopic examination of appropriate sections of all specimens. 04/23/2022 [facility] Description 1:03 PM HEALTH The presence of black ink is confirmed on tissue sections. CDT LABORATORY-C ENTRAL LABORATORY SYNOPTIC Breast Biomarker Reporting Template 03/30 [facility] REPORTING Left Breast Core - A 1:03 PM HEALTH Protocol posted: 11/24/2019 CDT LAB ORATORY-C ENTRAL ?? Test(s) Performed: ? L ABORATORY ? Estrogen Receptor (ER ) Status: ?Positive (greater than 10% of cells demonstrate nuclear positivity) ? Percentage of Cells with Nuclear Positivity: ? 99 % ? Average Intensity of Staining: ?Strong ? Test Type: ?Laboratory-developed test ? Primary Antibody: ?SP1 ?? Test(s) Performed: ? Progesterone Receptor (PgR) Status: ?Positive ? Percentage of Cells with Nuclear Positivity: ? 43 % ? Average Intensity of Staining: ?Moderate ? Test Type: ?Laboratory-developed test ? Primary Antibody: ?636 ?? Test(s) Performed: ? HER2 by Immunohistochemistry: ?Negative (Score 1+ ) ? Test Type: ?Food and Drug Administration (FDA) cleared (test / vendor): [place] ? Primary Antibody: ?4B5 ?? Cold Ischemia and Fixati on Times: ?Meet requirements specified in latest version of the ASCO / CAP Guidelines ?? Testing Performed on Block Number(s): ?A1 METHODS ?? Fixative: ?Formalin ?? Image Analysis: ?Performed ? Method: ?[facility] morphometric analysis ? Biomarkers Scored by Image Analysis: ?ER ? Biomarkers Scored by Image Analysis: ?PgR Additional 04/23/2022 [facility] Information Interpreted at [email or web address], Central Laboratory - [address], [place] [address] 1:03 PM HEALTH CDT LABORATORY-C ENTRAL LABORATORY Specimen (Source) Anatomical Collection Method Collection Time Re ceived Time Location / / Volume Laterality Other (Left Breast 04/18/2022 8:45 2021 3:18 Core Ultrasound AM CDT PM CDT Biopsy) Doctor Unknown PATHOLOGY/CYTOLOGY Performing Organization Address City/State/ZIP Code Phon e Number [facility] [address] [place] [address] LABORATORY-CENTRAL 2000 LABORATORY US BIOPSY BREAST NEEDLE W UMER W GUIDE LEFT (04/18/2022 12:00 AM CDT) Anatomical Region Laterality Modality Breast Left Left Ultrasound Narrative This result has an attachment that is no t available. Donya Ortez DO US SCAN-OPERATIVE/PROCEDURE REPORT (04/18/2022 12:00 AM CDT) Narrative This result has an attachment that is no t available. Scanner OTHER SCAN-MAMMOGRAPHY REPORT (04/18/2022 12:00 AM CDT) Narrative This result has an attachment that is no t available. Scanner OTHER US BREAST UNILATERAL LEFT LIMITED (04/16/2022 3:11 PM CDT) Anatomical Region Laterality Modality BREASTS, Breast Left, Breast Right Left Ultra sound Specimen (Source) Anatomical Location Collection Method / Collectio n Time Received Time / Laterality Volume Narrative 04/17/2022 12:57 PM CDT As a result of the Cures Act, medical imaging exams and procedure reports are released immediate ly into your electronic medical record. ??You may view this report befor e your referring provider. ??If you have questions, please contact your [facility] care provider. LEFT BREAST ULTRASOUND 04/16/2022 PLEASE SEE [id number] FOR LEFT DIGITAL AD DITIONAL VIEWS MAMMOGRAM OF SAME DAY. Donya Ortez DO US XR MAMMO MATTHIEU UNI ADDL VIEWS LEFT (04/16/2022 3:01 PM CDT) Anatomical Region Laterality Modality BREASTS, Breast Left Mammography Specimen (Source) Anatomical Collection Method Collection Time Re ceived Time Location / / Volume Laterality 04/16/2022 3:21 PM CDT Impressions 04/17/2022 12:57 PM CDT Suspicious lesion LEFT breast 9 o'clock 1 cm from the nipple measuring 8 millimeters with surrounding distortion. RECOMMENDATIONS: Ultrasound-guided core needle biopsy. BI-RADS Category 4: Suspicious Results and recommendations discussed wi th the patient. Dictated by: Rufino Sarabia MD @04/16/2022 3:21:52 PM/[place]win PATIENTS: You will also receive a letter with your examination results in an easy to read format. ??If you have qu estions about your results, please contact your referring provider. Narrative 04/17/2022 12:57 PM CDT As a result of the Cures Act, medical imaging exams and procedure reports are released immediate ly into your electronic medical record. ??You may view this report befor e your referring provider. ??If you have questions, please contact your [facility] care provider. LEFT BREAST MAMMOGRAM DIGITAL ADDITIONAL VIEWS WITH TOMOSYNTHESIS 04/16/2022 ?? LEFT BREAST ULTRASOUND 04/16/2022 CLINICAL HISTORY: LEFT breast mass/asymmetry. COMPARISON: 04/10/2022. TECHNIQUE: Digital LEFT mammogram in 2 projections. Real-time ultrasound imaging of LEFT isabelle ast with imaging documentation. Scanning was performed by both the techn ologist and the radiologist. BREAST COMPOSITION: The breasts are heterogeneously dense, w hich may obscure small masses. ?? FINDINGS: 3D CC and 3D MLO LEFT breast mammograms submitted. Small area of architectural distortion present within the medial LEFT breast just behind the nipple. best visualized on the CC vi ew. Targeted LEFT breast ultrasound performe d. In the medial LEFT breast 1 cm from the nipple there is an area of dens e tissue with distortion along with a hypoechoic nodule measuring 8 x 5 x 6 millimeters. 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 WORKERS [id number] 2011-Presen [phone] [address] [address] COMP COMP t [address] [place] [address] MEDICA MEDICA ELECT [id number] 2021-Presen [address] [address] [place] [address] [phone] (Home) [place] [address] [place], [place] (Work) [id number] Joanne Cheng Workers Comp Self 1965 [id number] (Home) [place] [address] [place], [place] ([place]) [phone] BRETT CHENG Personal/Family Spouse [phone] [place] [address] Advance Directives Latest Code Status on File Code Status Date Activated Date Inactivated Comments Full Code 11/26/2011 6:53 PM 11/28/2011 6:20 PM Care Teams Portable Trackman Relationship Specialty Start Date End Date Donya Ortez DO PCP - General Family Practice 02/06/22 [address] [place] [address] Malik Clark, RN Nurse Navigator - Registered Nurse 05/02/22 [address] [place] [address]
--- OUTSIDE RECORDS SUMMARY | 2022-07-17 13:09 | XMS_ITS | Encounter Summary ---
:1965 Author Organization [facility] Address [address] [place] [address] Care Team Providers Name Role Phone Unavailable Primary Care Provider Unavailable Reason for Referral Outpatient (Routine) - Closed Specialty Diagnoses / Procedures Referred By Contact Refer red To Contact Radiation Oncology Gabriella Garza [facility] M.D. [address] [place] [phone] Referral ID Status Reason Start Date Expiration Date Visits Requ ested Visits Authorized [id number] Closed 05/15/2022 05/15/2023 1 1 Scheduling Instructions With sim Outpatient (Routine) - Authorized Specialty Diagnoses / Procedures Referred By Contact Refer red To Contact Radiation Oncology Gabriella Garza [facility] M.D. [address] [place] [phone] Referral ID Status Reason Start Date Expiration Date Visits V isits Requested Authorized [id number] Authorized 05/15/2022 05/15/2023 10 10 Radiation Therapy (Routine) - Authorized Specialty Diagnoses / Procedures Referred By Contact Refer red To Contact Diagnoses Malignant Neoplasm Of Breast Lower Inner Quadrant Female Left (HCC) Gabriella Garza M.D. [facility] Procedures Management Visit [address] [place] [phone] Referral ID Status Reason Start Date Expiration Date Visits V isits Requested Authorized [id number] Authorized 05/15/2022 05/15/2023 10 10 Radiation Therapy (Routine) - Authorized Specialty Diagnoses / Procedures Referred By Contact Refer red To Contact Diagnoses Malignant Neoplasm Of Breast Lower Inner Quadrant Female Left (HCC) Gabriella Garza M.D. [facility] Procedures Prior Auth Rad Tx [place] RADTN TX DEL >=1 MEV COMPLEX [address] [place], [place] [phone] Referral ID Status Reason Start Date Expiration Date Visits V isits Requested Authorized [id number] Authorized 06/10/2022 05/15/2023 19 19 Radiation Therapy (Routine) - Closed Specialty Diagnoses / Procedures Referred By Contact Refer red To Contact Diagnoses Malignant Neoplasm Of Breast Lower Inner [facility] Female Left (HCC) Gabriella Garza M.D. [facility] Procedures Initial Rad Onc Treatment Planning CT Simulation [address] [place], [place] [phone] Referral ID Status Reason Start Date Expiration Date Visits Requ ested Visits Authorized [id number] Closed 05/15/2022 05/15/2023 1 1 Reason for Visit Appointment Request (Routine) - Closed Specialty Diagnoses / Procedures Referred By Contact Refer red To Contact Radiation Oncology Diagnoses Malignant Neoplasm Of Unspecified Site Of Laterality Unknown Female Breast (HCC) Irma Montes M.D. [address] [place] [address] Referral ID Status Reason Start Date Expiration Date Visits Requ ested Visits Authorized [id number] Closed 05/07/2022 05/07/2023 1 1 Encounter Details Date Type Department Care Team Description 05/15/2022 - Hospital Encounter Department of Gabriella Garza nant Neoplasm 05/16/2022 Radiation Oncology Alirio Blackwood [facility] in [place], [facility] [address] [place], [place] Female Left (HCC) [address] [facility] [phone] (Primary Dx) [place], [place] [phone] (Work) [phone] Social History Tobacco Use Types Packs/Day Years Used Date Smoking Tobacco: Former Cigarettes 1 40 Quit : 04/28/2022 Smokeless Tobacco: Never Tobacco Cessation: Counseling Given: Not Answered Alcohol Use Standard Drinks/Week Comments Not Currently 0 (1 standard drink = 0.6 oz pure alcoho l) Occasional alcohol recently Sex Assigned at Date Recorded Not on file documented as of this encounter Last Filed Vital Signs Vital Sign Reading Time Taken Comments Blood Pressure - - Pulse - - Temperature - - Respiratory Rate - - Oxygen Saturation - - Inhaled Oxygen Concentration - - Weight 56 kg (123 lb 7.3 oz) 05/15/2022 9:48 AM CDT Height - - Body Mass Index - - documented in this encounter Medications at Time of Discharge Medication Sig Dispensed Refills Start Date End Date albuterol 90 mcg/actuation Inhale 1-2 puffs. 0 inhaler folic acid 1 mg tablet Take 1 mg by mouth 0 03/06 daily. methotrexate 2.5 mg tablet Take 15 mg by mouth. 0 03/06/2022 predniSONE (DELTASONE) 5 Take 3 tablets x 5 0 04/2022 mg tablet days, 2 tabs x 5 days, 1 tab x 5 days, then stop. As needed flare. ibuprofen (ADVIL,MOTRIN) 0 02/07/2022 200 mg tablet documented as of this encounter Consult Notes Eva Samaniego P.A.-C., M.S. - 05/15/2022 10:00 AM CDT SUBJECTIVE REQUESTING PROVIDER Irma Montes M.D. REASON FOR CONSULT 1. 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 HISTORY OF PRESENT ILLNESS Mrs. Joanne Cheng is a 56-year-old female with stage IA (pT1b, pN0(sn), cM0, G1, ER+, OH+, HER2-) invasive ductal carcinoma of the left breast, who presents today for an opinion regarding the role of radiation therapy in the management of the patient's disease. Her oncologic history is as follows: Oncology History Malignant Neoplasm Of Breast Lower Inner Quadrant Female Left (HCC) 04/10/2022 Imaging Bilateral screening mammogram demonstrated a focal asymmetry in the lower inner quadrant of the left breast, 3 cm from the nipple. No suspicious findings in the right breast. BI-RADS 0. 04/16/2022 Imaging Left breast diagnostic mammogram with tomosynthesis and ultrasound demonstrated in the medial left breast, 1 cm from the nipple, there was an area of dense tissue with distortion along with a hypoechoic nodule measuring 8 x 5 x 6 mm. BI-RADS 4. 04/18/2022 Biopsy/Pathology A) LEFT BREAST, 9:00, 1 CM FROM NIPPLE, ULTRASOUND-GUIDED CORE BIOPSY: 1. Invasive ductal carcinoma, measuring up to 3 mm in this sampling a. Parker grade: I of III; Parker score: 3 of 9 b. Angio-lymphatic invasion: Absent c. Associated DCIS: Absent 2. Ruptured benign duct with associated inflammatory reaction 3. Breast Ancillary Testing: a. Hormone Receptors: Estrogen receptor: Positive (99%, strong staining) Progesterone receptor: Positive (43%, moderate staining) b. HER2 by IHC: Negative (1+ by manual morphometry) c. Ki-67: Deferred (insufficient tumor cells for analysis) 04/29/2022 Imaging MRI of the bilateral breasts demonstrated mass enhancement central left breast measuring proximally0.8 x 0.9 x 1.1 cm. There was biopsy clip associated with the abnormal enhancement, corresponding tothe biopsy-proven malignancy. No suspicious enhancement elsewhere in the left breast. No suspicious enhancement for malignancy in the right breast. Axillary lymph nodes were normal in size and morphology. BI-RADS 6. 05/07/2022 Surgery and Procedures Left breast lumpectomy and left axillary sentinel lymph node biopsy was performed by Dr. Irma Montes. A) LEFT BREAST, LUMPECTOMY: 1. Invasive ductal carcinoma, Mao grade I of III a. Size: 7 mm b. Core biopsy site is associated with tumor 2. Margins: a. Invasive carcinoma is 3 mm from the anterior margin 3. Breast Ancillary Testing: Performed on prior case ([id number]) a. Hormone Receptors: Estrogen receptor: Positive (99%, strong staining) Progesterone receptor: Positive (43%, moderate staining) b. HER2 by IHC: Negative (1+ by manual morphometry) 4. Ki67 (performed on A6): 1% by image analysis 5. Proliferative fibrocystic change B) LEFT AXILLARY SENTINEL LYMPH NODE, 1, BIOPSY: 1. Negative for malignancy in 1 lymph node (0/1) 2. Incidental destinee nevus C) LEFT AXILLARY SENTINEL LYMPH NODE, 2, BIOPSY: 1. Negative for malignancy in 1 lymph node (0/1) SPECIMEN Procedure: Excision (less than total mastectomy) Specimen Laterality: Left TUMOR Tumor Site: Clock position : 9 o'clock Tumor Site: Distance from nipple (Centimeters): 1 cm Histologic Type: Tubular carcinoma Glandular (Acinar) / Tubular Differentiation: Score 1 Nuclear Pleomorphism: Score 2 Mitotic Rate: Score 1 Overall Grade: Grade 1 (scores of 3, 4 or 5) Tumor Size: Greatest dimension of largest invasive focus (Millimeters): 7 mm Tumor Focality: Single focus of invasive carcinoma Ductal Carcinoma In Situ (DCIS): Not identified Lobular Carcinoma In Situ (LCIS): Not identified Lymphovascular Invasion: Not identified Dermal Lymphovascular Invasion: No skin present Microcalcifications: Present in invasive carcinoma Microcalcifications: Present in non-neoplastic tissue Treatment Effect in the Breast: No known presurgical therapy MARGINS Invasive Carcinoma Margins: Uninvolved by invasive carcinoma Distance from Closest Margin (Millimeters): 3 mm Closest Margin(s): Anterior LYMPH NODES Regional Lymph Nodes: Uninvolved by tumor cells Total Number of Lymph Nodes Examined: 2 Number of [place] Nodes Examined: 2 PATHOLOGIC STAGE CLASSIFICATION (pTNM, AJCC 8th Edition) Primary Tumor (pT): pT1b Regional Lymph Nodes Modifier: (sn): [place] node(s) evaluated. Regional Lymph Nodes (pN): pN0 05/14/2022 Other Medical Oncology consultation with Dr. Pearce. Oncotype DX was ordered. 06/10/2022 - Radiation Therapy Radiation Therapy Treatment Details (Noted on 05/15/2022) Site: Left Breast Technique: No technique specified Goal: Curative Planned Treatment Start Date: 06/10/2022 INTERVAL HISTORY The patient was seen and examined today with Dr. Garza. The patient reports doing well overall. She reports good energy levels. She reports healing well following surgery. She denies any incision concerns. She reports occasional discomfort of the left breast surgical site, but denies rosalinda pain. Denies swelling of the left breast. She denies left arm rangeof motion limitations or lymphedema. She denies shortness of breath. She has a stable chronic cough.She does have a history of rheumatoid arthritis and currently takes methotrexate. She reports that her feet are the most bothersome. The patient denies a history of prior radiation therapy or inflammatory bowel disease. Her ECOG performance status is 0. REVIEW OF SYSTEMS Review of systems was negative except as documented above. PAST MEDICAL HISTORY Past Medical History: Diagnosis Date Arthritis Rheumatoid (HCC) Atypical Squamous Cells Undetermined Significance Cervix Depression Malignant Neoplasm Of Breast Lower Inner Quadrant Female Left (HCC) Primary Osteoarthritis Spine Cervical and lumbar Radiculopathy Shoulder PAST SURGICAL HISTORY Past Surgical History: Procedure Laterality Date CATARACT EXTRACTION W/ INTRAOCULAR LENS IMPLANT, BILATERAL SECTION LUMPECTOMY BREAST WITH SENTINEL NODE BIOPSY Left TUBAL LIGATION FAMILY HISTORY No family history on file. SOCIAL HISTORY Social History Socioeconomic History Marital status: Spouse name: Jl Number of children: 3 Tobacco Use Smoking status: Former Packs/day: 1.00 Years: 40.00 Pack years: 40.00 Types: Cigarettes Quit date: 04/28/2022 Years since quittin.0 Smokeless tobacco: Never Substance and Sexual Activity Alcohol use: Not Currently Comment: Occasional alcohol recently Social History Narrative She is to her , Vlad. She has 3 children and 2 grandchildren with [address] the [address]. 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 OBJECTIVE Wt 56 kg PHYSICAL EXAM GENERAL: Alert and oriented in no apparent distress. ASSESSMENT / PLAN #1 Stage IA (pT1b, pN0(sn), cM0, G1, ER+, OH+, HER2-) invasive ductal carcinoma of the left breast s/p left breast lumpectomy and sentinel lymph node biopsy on May 07, 2022 #2 Oncotype DX pending I had a discussion with the patient and her , Vlad, regarding her breast cancer diagnosis including information regarding her staging, grade, and hormone receptors. We reviewed her oncologic history as detailed above. We also had a detailed discussion regarding the risks, benefits, and alternatives of radiotherapy in this setting. We discussed radiation therapy to the whole or partial left breast in 5 or 15 fractions. I discussed the logistics as well as the acute and chronic side effects of radiotherapy. The acute side effects are common and include fatigue, radiation dermatitis, breast swelling and discomfort. Long-term side effects include skin changes and texture changes of the breast, possible breast asymmetry, pulmonary scarring (typically of no clinical significance), radiation pneumonitis, increased risk of rib fracture with significant trauma, lymphedema, small increased risk of coronary artery disease (if left breast is irradiated), and a very small risk of secondary malignancy. The patient was provided with a written summary of recommendations. Her questions were answered to her verbalized satisfaction. We were contacted by the patient's breast care team coordinator scheduler, BRYANT Livingston, at [facility] notifyingus that Dr. Pearce ordered Oncotype DX testing for the patient. We reviewed that we would wait for the results of the Oncotype DX testing and if chemotherapy would be recommended by Dr. Pearce that it would be given prior to radiation therapy. The patient reports that she is interested in proceeding with radiation therapy, likely a 5 fractioncourse. We discussed that CT simulation for radiation therapy planning is typically performed approximately one month following surgery or chemotherapy. Therefore, we will schedule a return visit with planned CT simulation here the week of June 04, 2022. If chemotherapy is recommended for the patient, then the visit here and simulation would be postponed until after chemotherapy is completed. Thepatient verbally expressed her agreement with the plan. Dr. Garza also met with the patient today, please see her attestation for details. The patient was provided with our contact information. She was asked to contact us sooner with questions or concerns. She verbally expressed her understanding of the plan. EDUCATION Ready to learn, no apparent learning barriers were identified; learning preferences include listening. Explained diagnosis and treatment plan; patient expressed understanding of the content. PRIMARY PROVIDER Donya Ortez, I personally spent 45 minutes in care of the patient today. Time includes both non face to face and face to face patient care. Signed by: Eva Samaniego P.A.-C. MMateusz 05/15/2022 11:07 AM CDT [facility] [address] [place] [address] Associated attestation - Gabriella Garza M.D. - 05/16/2022 5:23 PM CDT RADIATION ONCOLOGY CONSULT I saw and evaluated the patient and participated in the teresa portions of the service. I reviewed the documentation of Ms. Eva Samaniego PA-C, and agree with the findings and plan. Please see Ms. Samaniego's detailed note for the patient's initial presentation and work-up. Briefly, Mrs. Cheng is a very pleasant 56 year old female with a newly diagnosed left sided breast cancer whose Oncotype DX is pending. She presents now to discuss radiation options. She was found to have a 0.7cm tubular carcinoma, Grade 1, margins negative by 3mm with 2 SLNs negative. Her Oncotype DX is pending. I have reviewed her imaging, operative and pathology reports. On exam, she appears well. Heart-Regular rate and rhythm. Lungs- No dullness to percussion and clearto auscultation. Breasts- small and symmetric. She has a moderate seroma/fibrosis in the medial lower portion of her breasts. No suspicions lumps, masses or skin changes. Her incision is healing well. No cervical, supra/infraclavicular or axillary adenopathy. We discussed the findings above and below in this note with the patient and her . We discussed her treatment alternatives including various radiation options including 5 vs 15 fraction regimens and partial breast radiotherapy. I think her breasts might be too small for partial breast radiotherapy. We won't know until we outline her volumes. We discussed the rationale, risks, side effects and goals of radiation therapy. We discussed the rationale, risks, side effects and adjuvant goals of radiation therapy. 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 We discussed possibly utilizing a breath hold technique for treatment if this is better and sheis able. They understood and their questions were answered. She wished to proceed with treatment. Wetentatively plan on delivering 7733-8783 cGy in 5 fractions either daily or every other day (whole breast vs partial breast) starting 3-5 days after her simulation. She is okay with either partial breast or a hypofractionated regimen. Again, I think it is likely that she will not be a candidate for partial breast radiotherapy given her small breast size. We will await the Oncotype DX result but have tentatively set her up for a return with us on June 04. Of course, if she needs chemotherapy, we will reschedule to 2-3 weeks after her last chemotherapy. Their questions were answered, and they were comfortable with this plan. My thanks to Simon Acuna and Pérez for the opportunity to participate in this patient's care. EDUCATION Ready to learn, no apparent learning barriers were identified; learning preferences include listening. Explained diagnosis and treatment plan; patient expressed understanding of the content. CONSENT Discussed the risks, benefits, alternatives, and the necessity of other members of the healthcare team participating in the procedure. All questions answered and consent given. DIAGNOSIS #1 Stage IA (pT1b, pN0(sn), cM0, G1, ER+, OH+, HER2-) invasive ductal carcinoma of the left breast s/p left breast lumpectomy and sentinel lymph node biopsy on May 07, 2022 #2 Oncotype DX pending Signed by: Gabriella Garza M.D. Radiation Oncology [facility] [address] [place] [address] documented in this encounter Miscellaneous Notes Addendum Note - Gabriella Garza M.D. - 05/15/2022 10:00 AM CDT Encounter addended by: Gabriella Garza M.D. on: 05/16/2022 4:14 PM Actions taken: Letter saved Addendum Note - Gabriella Garza M.D. - 05/15/2022 10:00 AM CDT Encounter addended by: Gabriella Garza M.D. on: 05/16/2022 5:23 PM Actions taken: Edit attestation on clinical note, Letter saved Addendum Note - Lyudmila Silva C.NJulio C - 05/15/2022 10:00 AM CDT Encounter addended by: Lyudmila Silva C.N.A. on: 05/17/2022 6:53 AM Actions taken: Letter saved documented in this encounter Plan of Treatment Scheduled Orders Name Type Priority Associated Order Schedule Diagnoses Prior Auth Rad Tx Radiation Oncology Routine Malignant Neoplas m Ordered: 05/15/2022 Of Breast Lower Inner Quadrant Female Left (HCC) Management Visit Radiation Oncology Routine Malignant Neoplasm 10 Occurrences Of Breast Lower starting Inner Quadrant until 023 Female Left (HCC) Scheduled Referrals Name Type Priority Associated Order Schedule Diagnoses Radiation Oncology Outpatient Referral Routine 10 Occurrences nurse visit starting 2021 (clinic) until Radiation Oncology Outpatient Referral Routine Ex pected: 06/04/2022 office visit (Approximate), (clinic) Expires: 2022 documented as of this encounter Results Initial Rad Onc Treatment Planning CT Simulation (06/05/2022 10:50 AM CDT) Specimen (Source) Anatomical Location Collection Method / Collectio n Time Received Time / Laterality Volume Narrative AGUSTÍN CAMERON - 06/05/2022 10:50 AM CDT Kaya Baig R, RTT ? 06/05/2022 10:51 AM Initial Rad Onc Treatment Planning CT Si mulation Date/Time: 06/05/2022 10:50 AM Performed by: Gabriella Garza M.D. Authorized by: Gabriella Garza M.D. Gabriella Garza M.D. RADIATION ONCOLOGY ORDERABLE S Performing Organization Address City/State/ZIP Code Phon e Number [place] na documented in this encounter Visit Diagnoses Diagnosis Malignant Neoplasm Of Breast Lower Inner Quadrant Female Left (HCC) - Primary Malignant Neoplasm Of Breast Lower Inner Quadrant Female Left (HCC) documented in this encounter
--- OUTSIDE RECORDS SUMMARY | 2022-07-17 13:09 | XMS_ITS | Encounter Summary ---
:1965 Author Organization [facility] Address [address] [place] [address] Care Team Providers Name Role Phone Unavailable Primary Care Provider Unavailable Reason for Visit Radiation Therapy (Routine) - Authorized Specialty Diagnoses / Procedures Referred By Contact Refer red To Contact Diagnoses Malignant Neoplasm Of Breast Lower Inner Quadrant Female Left (HCC) Gabriella Garza M.D. [facility] Procedures Prior Auth Rad Tx [place] RADTN TX DEL >=1 MEV COMPLEX [address] [place] [address] Referral ID Status Reason Start Date Expiration Date Visits V isits Requested Authorized [id number] Authorized 06/10/2022 05/15/2023 19 19 Encounter Details Date Type Department Care Team Description 06/10/2022 Hospital Encounter Department of Radiation Art Garza I., [facility] [place] [address] [facility] [address] [place] [phone] Social History Tobacco Use Types Packs/Day Years [...]
--- OUTSIDE RECORDS SUMMARY | 2022-07-17 13:09 | XMS_ITS | Encounter Summary ---
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 [facility] Procedures Initial Rad Onc Treatment Planning CT Simulation [address] [place], [place] [phone] Referral ID Status Reason Start Date Expiration Date Visits Requ ested Visits Authorized [id number] Closed 05/15/2022 05/15/2023 1 1 Encounter Details Date Type Department Care Team Description 06/05/2022 Hospital Encounter Department of Gabriella Garza Neoplasm Radiation Oncology Alirio Blackwood Of Breast Lower in [place], [facility] [address] [place], [place] Female Left (HCC) [address] [facility] [address] [place], [place] [phone] (Work) [phone] Social History Tobacco Use Types Packs/Day Years [...] needed flare. 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 Authorized by: Gabriella Garza M.D. Simulation was performed under physician supervision based on physician order in preparation for radiation therapy. Physician was immediately available to provide assistance and direction throughout the procedure. Written consent for treatment was completed or confirmed. The patient was appropriately identified and placed in the treatment position using the necessary immobilization to ensure a reproducible treatment position. Reference juares were placed to facilitate marking of isocenter. Area scanned:Chest Contrast used for the simulation procedure: None Patient position:head first supine and arms up Custom immobilization: Vac-pedro Motion management: Breath hold scan Bolus: No CT guidance: Following positioning of the patient, a series of slices was obtained to be utilized intreatment planning. CT images were transferred to the [employer] treatment planning system, after a reference isocenter was determined and marked. Segmentation and treatment planning will take place priorto treatment delivery. Patient set up and imaging was appropriate and completed without incident. Grey Inspector use:No documented in this encounter Plan of Treatment Not on filedocumented as of this encounter Procedures Procedure Name Priority Date/Time Associated Comments Diagnosis INITIAL RAD ONC Routine 06/05/2022 10:50 AM Malignant Neoplasm Results for this TREATMENT PLANNING CDT Of Breast Lower proced ure are in CT SIMULATION Inner Quadrant the results Female Left (HCC) section. 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
--- OUTSIDE RECORDS SUMMARY | 2022-07-17 13:09 | XMS_ITS | Encounter Summary ---
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 [facility] Procedures Prior Auth Rad Tx CA RADTN TX DEL >=1 MEV COMPLEX [address] [place] [address] Referral ID Status Reason Start Date Expiration Date Visits V isits Requested Authorized [id number] Authorized 06/10/2022 05/15/2023 19 19 Encounter Details Date Type Department Care Team Description 06/11/2022 Hospital Encounter Department of Radiation Art Garza I., [facility] [place] [address] [facility] [address] [place] [phone] Social History Tobacco Use Types Packs/Day Years [...]
--- OUTSIDE RECORDS SUMMARY | 2022-07-17 13:09 | XMS_ITS | Encounter Summary ---
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 [facility] Procedures Management Visit [address] [place] [phone] Referral ID Status Reason Start Date Expiration Date Visits V isits Requested Authorized [id number] Authorized 05/15/2022 05/15/2023 10 10 Encounter Details Date Type Department Care Team Description 06/11/2022 - Hospital Encounter Department of Gabriella Garza nant Neoplasm 06/12/2022 Radiation Oncology Alirio Blackwood Of Breast Lower in [address] Female Left (HCC) [address] [facility] [address] [place], [place] [phone] (Work) [phone] Social History Tobacco Use Types Packs/Day Years [...] Pressure - - Pulse - - Temperature 36.4 ??C (97.6 ??F) 06/11/2022 4:26 PM CDT Respiratory Rate - - Oxygen Saturation - - Inhaled Oxygen Concentration - - Weight 55.8 kg (123 lb) 06/11/2022 4:26 PM CDT Height - - Body Mass Index [...] needed flare. documented as of this encounter Progress Gabriella Olmos M.D. - 06/11/2022 4:15 PM CDT ATTESTATION FOR MANAGEMENT VISIT I saw and evaluated the patient and participated in the teresa portions of the service as noted below. I reviewed the documentation of Ms. Amelia Haley RN and agree with the findings and plan. The patient appears well on exam. We will continue with radiation as planned and we anticipate that she will complete treatments this week. We anticipate that Mrs. Joanne Cheng will complete radiation treatment as planned without interruptions. The course of treatment was tolerated well. The patient experienced no toxicities during radiation treatment. Follow-up will be with Dr. Pearce. Follow-up with us will be as needed. Gabriella Garza M.D., 06/11/2022 SUBJECTIVE REASON FOR VISIT Evaluation for side effects while receiving radiation treatment for 1. 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 HISTORY OF PRESENT ILLNESS Mrs. Joanne Cheng is a 56 y.o. female with stage IA (pT1b, pN0(sn), cM0, G1, ER+, [place]+, HER2-, Oncotype DX score: 14) invasive ductal carcinoma of the left breast. She is now undergoing radiation therapy. Treatment Course: 1xBreastL Plan ID Fractions Dose / Fraction (cGy) Dose Treated (cGy) Dose Planned (cGy) First Treatment Last Treatment Elapsed Days [id number] 520 1040 2600 06/10/2022 06/11/2022 1 Course Summary 06/10/2022 06/11/2022 1 The patient was seen and examined today with Dr. Garza. The patient reports that she is doing well. She denies any side effects from treatment. She denies any new concerns or questions. Patient denies skin changes. PATIENT REPORTED SYMPTOM SCREEN FATIGUE (Scale: 0 = no fatigue; 10 = worst fatigue you can imagine): 3 PAIN (Scale: 0 = no pain; 10 = worst pain you can imagine): 0 OVERALL QUALITY OF LIFE (Scale: 0 = as bad as can be; 10 = as good as can be): 9 OBJECTIVE Temp 36.4 ??C (Temporal) Wt 55.8 kg PHYSICAL EXAM General: Alert and oriented in no apparent distress. ASSESSMENT / PLAN #1 Stage IA (pT1b, pN0(sn), cM0, G1, ER+, [place]+, HER2-, Oncotype DX score: 14) invasive ductal carcinoma of the left breast s/p left breast lumpectomy and sentinel lymph node biopsy on May 07, 2022 #2 Radiotherapy to the left breast initiated on June 10, 2022; anticipated date of completion is on June 14, 2022 The patient is tolerating radiation treatment well overall. I have reviewed radiation education withpatient today. I have also reviewed monthly self breast examination pamphlet with patient today. Patient will start to apply moisturizing lotion to the left breast twice a day for the next 2 weeks. Patient will contact Dr. Pearce's office to secure follow up appointment. We will not order formal follow up in Radiation Oncology. She will contact us with any questions or concerns. We will continue withradiation treatment as planned. Signed by: Amelia Haley R.N. 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
--- OUTSIDE RECORDS SUMMARY | 2022-07-17 13:09 | XMS_ITS ---
:1965 Author Organization [facility] Address [address] [place] [address] Care Team Providers Name Role Phone Unavailable Primary Care Provider Unavailable Active Problems Problem Noted Date Malignant Neoplasm Of Breast Lower Inner Quadrant Fema le Left 05/10/2022 Cancer Staging: Pathologic stage from 05/07/2022: Stage IA (pT1b, pN0(sn), cM0, G1, ER+, [place]+, HER2-, Oncotype DX score: 14) - Unsigned Current Oncology Plans No current plan information found. Past Plans No past plan information found. Radiation Treatments Plan Last Treated Elapsed Days Fractions Prescribed Prescribed Total On Treated Fraction Dose Dose [id number] 06/14/2022 4 5 of 5 520 cGy 2,600 cGy Reference Point Last Treated On Elapsed Days Session Dose Total Dos e [id number] 06/14/2022 4 520 cGy 2,600 cGy
--- OUTSIDE RECORDS SUMMARY | 2022-07-17 13:09 | XMS_ITS | Encounter Summary ---
:1965 Author Organization [facility] Address [address] [place] [address] Care Team Providers Name Role Phone Unavailable Primary Care Provider Unavailable Encounter Details Date Type Department Care Team Description 06/14/2022 Documentation Department of Radiation Gabriella [facility] I[facility] [place] [address] [address] [facility] [address] [place] [phone] (Wo rk) Social History Tobacco Use Types Packs/Day Years Used Date Smoking Tobacco: Former Cigarettes 1 40 Quit : 04/28/2022 Smokeless Tobacco: Never Alcohol Use Standard Drinks/Week Comments Not Currently 0 (1 standard drink = 0.6 oz pure alcoho l) Occasional alcohol recently Sex Assigned at Date Recorded Not on file documented as of this encounter Miscellaneous Notes Radiation Completion Notes - Lisette Thao, [facility] - 06/14/2022 11:59 PM CDT DIAGNOSIS: 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 Treatment Intent: Curative Concomitant Therapy: None Single Plan Treatment Course: 1xBreastL Plan ID Fractions Dose / Fraction (cGy) Dose Treated (cGy) Dose Planned (cGy) First Treatment Last Treatment Elapsed Days [id number] 5 / 5 520 2600 2600 06/10/2022 06/14/2022 4 Course Summary 06/10/2022 06/14/2022 4 Radiation Modality: Photons CLINICAL SUMMARY Mrs. Joanne Cheng completed radiation treatment as planned without interruptions. The course of treatment was tolerated well. The patient experienced no toxicities during radiation treatment. TREATMENT RESPONSE: Response to treatment will be determined by post-treatment imaging and/or laboratory work. RECOMMENDED FOLLOW UP: Dr. Pearce Signed by: Lisette Méndez R.N., 06/19/2022 1:21 PM CDT [facility]iation Therapy Center [address] [place] [address] documented in this encounter Plan of Treatment Not on filedocumented as of this encounter Visit Diagnoses Not on filedocumented in this encounter
--- OUTSIDE RECORDS SUMMARY | 2022-07-17 13:09 | XMS_ITS | Encounter Summary ---
:1965 Author Organization [facility] Address [address] [place] [address] Care Team Providers Name Role Phone Unavailable Primary Care Provider Unavailable Reason for Referral Outpatient (Routine) - Closed Specialty Diagnoses / Procedures Referred By Contact Refer red To Contact Radiation Oncology Gabriella Garza [facility] M.D. [address] [place] [phone] Referral ID Status Reason Start Date Expiration Date Visits Requ ested Visits Authorized [id number] Closed 05/15/2022 05/15/2023 1 1 Scheduling Instructions With sim Reason for Visit Outpatient (Routine) - Closed Specialty Diagnoses / Procedures Referred By Contact Refer red To Contact Radiation Oncology Gabriella Garza [facility] M.D. [address] [place] [phone] Referral ID Status Reason Start Date Expiration Date Visits Requ ested Visits Authorized [id number] Closed 05/15/2022 05/15/2023 1 1 Encounter Details Date Type Department Care Team Description 06/05/2022 Hospital Encounter Department of Gabriella Garza Neoplasm Radiation Oncology Alirio Blackwood Of Breast Lower in [place], [facility] [address] [place], [place] Female Left (HCC) [address] [facility] [address] (Primary Dx) [place], [place] [phone] (Work) [phone] Social History Tobacco Use Types Packs/Day Years [...] Sign Reading Time Taken Comments Blood Pressure 123/47 06/05/2022 9:58 AM CDT Pulse 74 06/05/2022 9:58 AM CDT Temperature 36.6 ??C (97.8 ??F) 06/05/2022 9:58 AM CDT Respiratory Rate - - Oxygen Saturation - - Inhaled Oxygen Concentration - - Weight 56.4 kg (124 lb 5.4 oz) 06/05/2022 9:58 AM CDT Height - - Body Mass [...] flare. documented as of this encounter Progress Notes Eva Samaniego P.A.-C., M.S. - 06/05/2022 10:00 AM CDT SUBJECTIVE DIAGNOSIS 1. 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 HISTORY OF PRESENT ILLNESS Mrs. Joanne Cheng is a 56-year-old female with stage IA (pT1b, pN0(sn), cM0, G1, ER+, [place]+, HER2-, Oncotype DX score: 14) invasive ductal carcinoma of the left breast. Her oncologic history is as follows: Oncology [...] to 3 mm in this sampling a. Mao grade: I of III; Mao score: 3 of 9 b. Angio-lymphatic invasion: [...] LEFT BREAST, LUMPECTOMY: 1. Invasive ductal carcinoma, [place] grade I of III a. Size: 7 mm b. Core biopsy site is associated with tumor 2. Margins: a. Invasive carcinoma is 3 mm from the anterior margin 3. Breast Ancillary Testing: Performed on prior case ([id number]) a. Hormone Receptors: Estrogen receptor: Positive (99%, [...] of Lymph Nodes Examined: 2 Number of Wall Nodes Examined: 2 PATHOLOGIC STAGE CLASSIFICATION (pTNM, AJCC 8th Edition) Primary Tumor (pT): pT1b Regional Lymph Nodes Modifier: (sn): Wall node(s) evaluated. Regional Lymph Nodes (pN): pN0 05/14/2022 Other Medical Oncology consultation with Dr. Pearce. Oncotype DX was ordered. 05/28/2022 Other Oncotype DX recurrence score result of 14. 4% distant recurrence risk at 9 years with AI or DOMINGUEZ alone. <1% group average absolute chemotherapy benefit. 06/10/2022 - Radiation Therapy Radiation Therapy Treatment Details (Noted on 05/15/2022) Site: Left Breast Technique: No technique specified Goal: Curative Planned Treatment Start Date: 06/10/2022 INTERVAL HISTORY The patient was seen and examined today with Dr. Garza. The patient reports doing well overall. She reports good energy levels. She is working. She reports that she has healed completely following surgery. She denies any concerns or new symptoms at this time. She denies left arm lymphedema or range of motion limitations. REVIEW OF SYSTEMS Review of systems was negative except as documented above. OBJECTIVE BP (!) 123/47 (BP Location: Left arm, Patient Position: Sitting, Cuff Size: Regular) Pulse 74 Temp 36.6 ??C (Temporal) Wt 56.4 kg PHYSICAL EXAM GENERAL: Alert and oriented in no apparent distress. ASSESSMENT / PLAN #1 Stage IA (pT1b, pN0(sn), cM0, G1, ER+, [place]+, HER2-, Oncotype DX score: 14) invasive ductal carcinoma of the left breast s/p left breast lumpectomy and sentinel lymph node biopsy on May 07, 2022 The patient is continuing to do well overall following left breast lumpectomy with no healing issuesor new concerns. We discussed that her Oncotype DX score result was [address] Pearce does not recommend chemotherapy. We reviewed the recommendation for radiation therapy to the left breast in 5 or 15 fractions. The patient would like to proceed with a 5 fraction course and is agreeable to either left whole breast or partial breast treatment, depending on treatment planning volumes. We reviewed that Dr. Garza felt that she will likely not be a candidate for partial breast radiotherapy given her small breast size. We also discussed that radiation is delivered daily for whole breast treatment and every other day forpartial breast treatment. We briefly reviewed the acute side effects of radiation treatment today, please see my initial consultation note from May 15, 2022 for a complete listing of side effects. The patient was educated onuse of a moisturizing lotion to the skin of the left breast. After discussion, the patient verbally stated that she would like to proceed with radiation therapy.She signed consent. She is scheduled for CT simulation today. We will plan to initiate radiation therapy on Friday, June 10, 2022. The patient will contact us sooner with questions or concerns. [...] procedure. All questions answered and consent given. EDUCATION Ready to learn, no apparent learning barriers were identified; learning preferences include listening. Explained diagnosis and treatment plan; patient expressed understanding of the content. I personally spent 22 minutes in care of the patient today. Time includes both non face to face and face to face patient care. Signed by: Eva Samaniego P.A.-C., M.S. 06/05/2022 10:26 AM CDT [facility] Radiation Therapy Center [address] [place] [address] Associated attestation - Gabriella Garza M.D. - 06/05/2022 11:27 AM CDT I saw and evaluated the patient and participated in the teresa portions of the service. I reviewed the documentation of Ms. Eva Samaniego PA-C, and agree with the findings and plan. Her Oncotype DX recurrence score is 14. She presents for continued discussion regarding adjuvant radiation. She is interested in a 5 fraction regimen either FAST forward or partial breast pending our planning study. Her questions were answered; she wished to proceed. 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
--- OUTSIDE RECORDS SUMMARY | 2022-07-17 13:09 | XMS_ITS | Clinical Summary ---
:1965 Author Organization [facility] Address [address] [place] [id number] Care Team Providers Name Role Phone Unavailable Primary Care Provider Unavailable Source Comments Patient records contain information from all sites at [facility]. For routine questions regarding patient records, call [phone] during business hours, M-F 8:00 AM - 5:00 PM Central Time. Record requests for emergency care only can be directed to [phone] at any time.[facility] Medications Medication Sig Dispensed Refills Start Date End Date Status albuterol 90 Inhale 1-2 puffs. 0 12/11/2021 Active mcg/actuation inhaler folic acid 1 mg tablet Take 1 mg by 0 03/06/2022 Active mouth daily. methotrexate 2.5 mg Take 15 mg by 0 03/06/2022 Active tablet mouth. predniSONE (DELTASONE) Take 3 tablets x 0 03/06/2022 Active 5 mg tablet 5 days, 2 tabs x 5 days, 1 tab x 5 days, then stop. As needed flare. 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 06/14/2022 Documentation Radiation Oncology Gabriella Garza M.D. 06/13/2022 Hospital Encounter Radiation Oncology Gabriella Garza M.D. 06/12/2022 Hospital Encounter Radiation Oncology Gabriella Garza M.D. 06/11/2022 - Hospital Encounter Radiation Oncology Gabriella Garza Malignant Neoplasm 06/12/2022 Alirio [place] Of Breast Lower Inner Quadrant Female Left (HC C) 06/11/2022 Hospital Encounter Radiation Oncology Gabriella Garza M.D. 06/10/2022 Hospital Encounter Radiation Oncology Greg Gabriellasummer Blackwood M.D. 06/05/2022 Hospital Encounter Radiation Oncology GregGabriella kelly Malignant Neoplasm Alirio [place] Of Breast Lower Inner Quadrant Female Left (HC C) 06/05/2022 Hospital Encounter Radiation Oncology Gabriella Garza Malignant Neoplasm Alirio [place] Of Breast Lower Inner Quadrant Female Left (HC C) (Primary Dx) 05/15/2022 - Hospital Encounter Radiation Oncology Gabriella Garza Malignant Neoplasm 05/16/2022 Alirio [place] Of Breast Lower Inner Quadrant Female Left (HC C) (Primary Dx) from Last 3 Months Immunizations Name Administration Dates Next Due MMR 09/02/1997 Td, (Adult) Unspecified 09/02/1997 Social History Tobacco Use Types Packs/Day Years Used Date Smoking Tobacco: Former Cigarettes 1 40 Quit : 04/28/2022 Smokeless Tobacco: Never Tobacco Cessation: Counseling Given: Not Answered Alcohol Use Standard Drinks/Week Comments Not Currently 0 (1 standard drink = 0.6 oz pure alcoho l) Occasional alcohol recently Sex Assigned at Date Recorded Not on file Last Filed Vital Signs Vital Sign Reading Time Taken Comments Blood Pressure 123/47 06/05/2022 9:58 AM CDT Pulse 74 06/05/2022 9:58 AM CDT Temperature 36.4 ??C (97.6 ??F) 06/11/2022 4:26 PM CDT Respiratory Rate - - Oxygen Saturation - - Inhaled Oxygen Concentration - - Weight 55.8 kg (123 lb) 06/11/2022 4:26 PM CDT Height - - Body Mass Index - - Plan of Treatment Health Maintenance Due Date Last Done Comments CT Colonography 1965 Cervical Cancer Screening 1965 Cologuard 1965 Colonoscopy 1965 Colorectal Cancer Screening 1965 FIT 1965 Fasting Glucose for 1965 Diabetes Screening HIV Screening 1965 Hepatitis B Vaccines (1 of 1965 3 - 3-dose series) Hepatitis C Screening 1965 Lung Cancer Screening 1965 Zoster Vaccines (1 of 2) 1983 DTaP,Tdap,and Td Vaccines 12/27/2019 12/26/2009, 09/02/1997 , (2 - Td or Tdap) 09/02/1997 Pneumococcal vaccine (0-64 2021 2020 years) (2 - PCV) Depression Screening 09/29/2021 (Annual PHQ-2) COVID-19 Vaccine (4 - 10/04/2021 08/09/2021, 11/04/2020, Booster for Moderna series) 10/05/2020 Influenza Vaccine (#1) 2022 07/27/2019, 06/29/2009 Mammogram 05/07/2023 05/07/2022, 05/07/2022, 04/18/2022, Additional history exists Lipid (Cholesterol) 04/26/2027 04/26/2022 Screening HPV Vaccines Aged Out No longer robb arnett based on patient 's age to complete this topic Procedures Procedure Name Priority Date/Time Associated Comments Diagnosis ARIA COURSE COMPLETE Routine 06/14/2022 11:03 Res ults for this TREATMENT INFORMATION AM CDT proced ure are in the results section. ARIA DAILY TREATMENT Routine 06/14/2022 11:03 Res ults for this INFORMATION AM CDT procedure are i n the results section. ARIA DAILY TREATMENT Routine 06/13/2022 10:57 Res ults for this INFORMATION AM CDT procedure are i n the results section. ARIA DAILY TREATMENT Routine 06/12/2022 12:00 Res ults for this INFORMATION PM CDT procedure are i n the results section. ARIA DAILY TREATMENT Routine 06/11/2022 4:21 PM R esults for this INFORMATION CDT procedure are i n the results section. ARIA DAILY TREATMENT Routine 06/10/2022 2:52 PM R esults for this INFORMATION CDT procedure are i n the results section. ARIA COURSE COMPLETE Routine 06/07/2022 10:07 Res ults for this TREATMENT INFORMATION AM CDT proced ure are in the results section. INITIAL RAD ONC Routine 06/05/2022 10:50 Malignant Neoplasm Re sults for this TREATMENT PLANNING CT AM CDT Of Breast Lower pro cedure are in SIMULATION Inner Quadrant the results Female Left (HCC) section. OUTSIDE MG MAMMOGRAM Routine 05/07/2022 10:55 Res ults for this AM CDT procedure are i n the results section. OUTSIDE MG MAMMOGRAM Routine 05/07/2022 9:50 AM R esults for this CDT procedure are i n the results section. OUTSIDE US BREAST Routine 05/07/2022 9:35 AM Resu lts for this CDT procedure are i n the results section. OUTSIDE MR BREAST Routine 04/29/2022 1:35 PM Resu lts for this CDT procedure are i n the results section. OUTSIDE MG MAMMOGRAM Routine 04/18/2022 9:10 AM R esults for this CDT procedure are i n the results section. OUTSIDE US BREAST Routine 04/16/2022 3:00 PM Resu lts for this CDT procedure are i n the results section. OUTSIDE MG MAMMOGRAM Routine 04/16/2022 2:50 PM R esults for this CDT procedure are i n the results section. from Last 3 Months Results Aria Course Complete Treatment Information (06/14/2022 11:03 AM CDT)Only the most recent of2 resultswithin the time period is included. [facility] gist Method Time Signature Course ID [id number] RANDOLPH ARIA Course Start Date [facility] 2 11:38 CDT Course End Date [facility] 2 09:33 CDT First Treatment [facility] Date 2 14:51 CDT Last Treatment [facility] Date 2 11:03 CDT Treatment Elapsed 4 RANDOLPH ARIA Days Reference Point [id number] RANDOLPH ARIA Dosage Given to 2600 RANDOLPH ARIA Date cGy Plan ID [id number] RANDOLPH ARIA Fractions Treated 5 RANDOLPH ARIA to Date Planned Total 5 RANDOLPH ARIA Fractions Prescribed Dose 520 RANDOLPH ARIA Per Fraction Prescription Dose 2600 RANDOLPH ARIA in cGy Plan Primary [id number] RANDOLPH ARIA Reference Point Specimen (Source) Anatomical Collection Method Collection Time Re ceived Time Location / / Volume Laterality 06/14/2022 11:03 AM CDT Provider Not In System RADIATION ONCOLOGY ORDERABLE S Performing Organization Address City/State/ZIP Code Phon e Number RANDOLPH ARIA RANDOLPH ARIA na Aria Daily Treatment Information (06/14/2022 11:03 AM CDT)Only the most recent of5 resultswithin the time period is included. [facility] gist Method Time Signature Course ID [id number] AGUSTÍN OBRIENA Course Start Date [facility] 11:38 CDT [facility] Date 2 14:51 CDT Last Treatment [facility]PH [facility] Date 2 11:03 CDT Treatment Elapsed 4 RANDOLPH ARIA Days Reference Point [id number] RANDOLPH ARIA Dosage Given to 2600 RANDOLPH ARIA Date cGy Session Dosage 520 RANDOLPH ARIA Given Plan ID [id number] RANDOLPH ARIA Fractions Treated 5 RANDOLPH ARIA to Date Planned Total 5 RANDOLPH ARIA Fractions Prescribed Dose 520 RANDOLPH ARIA Per Fraction Prescription Dose 2600 RANDOLPH ARIA in cGy Plan Primary [id number] RANDOLPH [place] Reference Point Specimen (Source) Anatomical Collection Method Collection Time Re ceived Time Location / / Volume Laterality 06/14/2022 11:03 AM CDT Provider Not In System RADIATION ONCOLOGY ORDERABLE S Performing Organization Address City/State/ZIP Code Phon e Number AGUSTÍN CAMERON na Initial Rad Onc Treatment Planning CT Simulation [...] Organization Address City/State/ZIP Code Phon e Number AGUSTÍN CAMERON na MM diagnostic mammo unilat LT-Outside Mammogram (05/07/2022 10:55 AM CDT)Only the most recent of4 resultswithin the time period is included. Specimen (Source) Anatomical Location Collection Method / Collectio n Time Received Time / Laterality Volume Narrative IIMN - 05/08/2022 1:48 PM CDT This order has been created and auto-finalized to support the import of outside images. If available, original i nterpretation can be found on the Media Tab in Chart Review, in Document V iewer, or as an image in QREADS. If a re-interpretation or overread is re quired please follow defined workflow. ?? Provider Not In System IMG BI PROCEDURES Performing Organization Address City/[facility]/ZIP Code Phon e Number SAMIRA HOGAN NA US BREAST NEEDLE LOC LT-Outside US Breast (05/07/2022 9:35 AM CDT)Only the most recent of2 resultswithin the time period is included. Specimen (Source) Anatomical Location Collection Method / Collectio n Time Received Time / Laterality Volume Narrative IIMN - 05/08/2022 1:48 PM CDT This order has been created and auto-finalized to support the import of outside images. If available, original i nterpretation can be found on the Media Tab in Chart Review, in Document V iewer, or as an image in QREADS. If a re-interpretation or overread is re quired please follow defined workflow. ?? Provider Not In System IMG BI PROCEDURES Performing Organization Address [facility] Code Phon e Number SAMIRA HOGAN NA MR breast BI wo/w con-Outside MR Breast (04/29/2022 1:35 PM CDT) Specimen (Source) Anatomical Location Collection Method / Collectio n Time Received Time / Laterality Volume Narrative IIMS - 05/08/2022 1:54 PM CDT This order has been created and auto-finalized to support the import of outside images. If available, original i nterpretation can be found on the Media Tab in Chart Review, in Document V iewer, or as an image in QREADS. If a re-interpretation or overread is re quired please follow defined workflow. ?? Provider Not In System IMG MRI PROCEDURES Performing Organization Address City/[facility]/ZIP Code Phon e Number SAMIRA HOGAN NA from Last 3 Months Insurance Payer Benefit Plan / Subscriber ID Effective Dates Phone Addre ss Type Group [employer] MEDICA [id number] 2021-Present [phone] [address] [address] [place] [address]
--- OUTSIDE RECORDS SUMMARY | 2022-07-17 13:09 | XMS_ITS | Encounter Summary ---
:1965 Author Organization [facility] Address [address] [place] [address] Care Team Providers Name Role Phone Unavailable Primary Care Provider Unavailable Reason for Visit Radiation Therapy (Routine) - Authorized Specialty Diagnoses / Procedures Referred By Contact Refer red To Contact Diagnoses Malignant Neoplasm Of Breast Lower Inner Quadrant Female Left (HCC) Gabriella Garza M.D. [facility] Procedures Prior Auth Rad Tx AR RADTN TX DEL >=1 MEV COMPLEX [address] [place] [address] Referral ID Status Reason Start Date Expiration Date Visits V isits Requested Authorized [id number] Authorized 06/10/2022 05/15/2023 19 19 Encounter Details Date Type Department Care Team Description 06/12/2022 Hospital Encounter Department [facility] Radiation [facility] I[facility] [place] [address] [facility] [address] [place] [id number] [phone] Social History Tobacco Use Types Packs/Day Years [...]
--- NOTE | 2022-07-24 14:18 | ONC.NURNOTE ---
Pt called wondering if it is okay for her to start Humira which was prescribed for her by her Body Builder Apprentice. Per Dr. Pearce there are no interactions with her current treatment. Saturator left message with pt with the above information.
== END 2022-07-17 13:01 | disposition home or self-care (01) ==
LOC: RAD 13:00
PROVIDERS: Visit Provider Internal Medicine Hematology & Oncology
DX: C50.912 Malignant neoplasm of unspecified site of left female breast (principal); M85.89 Other specified disorders of bone density and structure, multiple sites
CPT/HCPCS: 77080

== ENCOUNTER 2022-10-11 13:00 | Outpatient (RCR) | payer BC, OTHER, SELFPAY ==
--- NOTE | 2022-08-07 11:18 | ONC.NURNOTE ---
Received call back from pt regarding checking in on how Anastrozole is going. Pt notes she is overall tolerating well. She reports 1-2 hot flashes/day that are intense, but don't last too long. She says these are not impacting her work, sleep or other quality of life. Reviewed options to lessen hot flashes including but not limited to yoga, vitamin E supplement, consideration of oxybutynin, etc. Pt says currently the hot flashes are manageable and she will contact us if she is looking for ways to improve them. She has no other concerns.
--- NOTE | 2022-08-14 10:32 | PC.NURSE ---
Addendum entered by Yara Lester 09/04/22 13:32: Patient states she is feeling much better off the Anastrozole. Reviewed with Dr. Pearce. New orders for Letrozole placed. Patient informed of same and was encouraged to call with questions or concerns. Addendum entered by Yara Lester 08/14/22 14:28: Per Dr. Pearce, patient instructed to hold Anastrozole for 2 weeks. [facility] will call patient to reassess. Patient verbalizes understanding. Original Note: Call from patient to report a possible side effect to her Anastrozole. Patient states that she has noted a significant change to her mood and anxiety since starting the Anastrozole 6 weeks ago. She notes feeling greenberg and dramatic and is experiencing anxiety about irrational things happening. She can't pin point anything in particular that she is feeling anxious about. I assured Joanne that I would share her concerns with Dr. Pearce and would call her back with recommendation.
--- NOTE | 2022-10-03 10:21 | ONC.NURNOTE ---
Patient called to report her insurance is denying coverage of [place] [facility] due to lack of referral to [place] (from what patient understands was communicated from insurance) She has an $18,000 outstanding bill [employer] will mail Dr Pearce note and RN note to patient so that she can submit to insurance to see if this helps with appeal Patient is not aware that there was any information stating her coverage did not include [place] [facility] [employer] suggested she talk to [place] [facility] billing dept as well to find out why coverage has been denied
--- NOTE | 2022-10-04 15:28 | ONC.NURNOTE ---
Received call from pt saying part of her radiation treatment is not being covered, with [employer] citing no referral was made. Called pt, printed and mailed copy of Dr. Pearce's note recommending radiation therapy, copy of referral from Dr. Montes, Dr. Garza and [facility] documentation citing treatment was authorized. Recommended pt discuss with the authorization dept at [facility] and refer [employer] to that dept as well; pt agreeable to this plan and will call us with any further questions.
--- NOTE | 2022-10-11 14:04 | ONC.NURNOTE ---
Accompanied patient to her oncology visit. Side effects of Tamoxifen reviewed including blood clots, risk of uterine cancer, hot flashes, arthralgias, vaginal dryness, mood changes, etc. Printed information given to patient. Patient encouraged to call [facility] with any questions or concerns. Patient scheduled for follow up in early November. If she is tolerating the Tamoxifen well, she can delay her follow up until Dr. Pearce returns.
== END 2022-11-10 23:59 | disposition home or self-care (01) ==
LOC: CCIC 13:00
PROVIDERS: PCP Student in an Organized Health Care Education/Training Program; Visit Provider Nurse Practitioner Family
DX: C50.912 Malignant neoplasm of unspecified site of left female breast (principal); Z17.0 Estrogen receptor positive status [ER+]; Z79.810 Long term (current) use of selective estrogen receptor modulators (SERMs); Z87.891 Personal history of nicotine dependence
CPT/HCPCS: 99202; 99205; 99212; 99214; 99215

== ENCOUNTER 2023-04-24 13:00 | Outpatient (RCR) | payer BC, SELFPAY ==
--- NOTE | 2022-11-13 12:13 | ONC.NURNOTE ---
Call to patient to see how she is tolerating the Tamoxifen. Patient states she is doing good and denies any side effects. Patient was scheduled to see Jolie Shawnee on 11/28. This appointment was cancelled and she will re-establish with Dr. Pearce on 01/02.
--- NOTE | 2023-03-03 16:16 | ONC.NURNOTE ---
Pt called with questions from her Handle Turner, Dr. Duarte Wong, ahead of an appt with him 03/05/23. Her ANC is 1.0; Dr. Wong asking Medical Oncology if that would be related to her Tamoxifen. Reviewed with Dr. Pearce. Tamoxifen does not cause low ANC, however her other medications Humira can cause neutropenia in 73% of patients and Methrotrexate neutropenia in 1-3%. Dr. Pearce discusses consideration of heme work-up and/or watching trend of her CBC-D. LM for Dr. Wong's team with this information; LVM for pt as well.
== END 2023-07-01 23:59 | disposition home or self-care (01) ==
LOC: CCIC 13:00
PROVIDERS: PCP Student in an Organized Health Care Education/Training Program; Visit Provider Internal Medicine Hematology & Oncology
DX: C50.912 Malignant neoplasm of unspecified site of left female breast (principal); Z17.0 Estrogen receptor positive status [ER+]; Z79.810 Long term (current) use of selective estrogen receptor modulators (SERMs); L59.8 Other specified disorders of the skin and subcutaneous tissue related to radiation; Z87.891 Personal history of nicotine dependence
CPT/HCPCS: 99212; 99213; 99214; 99215

== ENCOUNTER 2024-05-17 11:10 | Outpatient (RCR) | payer BC, SELFPAY | END 2024-05-25 23:59 | disposition home or self-care (01) | LOC: CCIC 11:10 | PROVIDERS: PCP Student in an Organized Health Care Education/Training Program; Visit Provider Physician Assistant | DX: C50.912 Malignant neoplasm of unspecified site of left female breast (principal); Z17.0 Estrogen receptor positive status [ER+]; Z79.810 Long term (current) use of selective estrogen receptor modulators (SERMs); Z72.0 Tobacco use | CPT/HCPCS: 99213; 99214; G0463 ==

== ENCOUNTER 2025-03-08 09:48 | Outpatient (CLI) | payer OTHER, SELFPAY ==
--- NOTE | 2025-03-08 09:45 | CRLHL7_ITS ---
For Patients: As a result of the Cures Act, medical imaging exams and procedure reports are released immediately into your electronic medical record. You may view this report before your referring provider. If you have questions, please contact your health care provider. BILATERAL DIGITAL DIAGNOSTIC MAMMOGRAM WITH TOMOSYNTHESIS AND COMPUTER-AIDED DETECTION, 03/08/2025 LEFT BREAST ULTRASOUND, 03/08/2025 CLINICAL HISTORY: LEFT breast lump. COMPARISON: 05/04/2024, 03/24/2023, 04/10/2022. TECHNIQUE: Digital BILATERAL mammogram in 4 projections with computer-aided detection. Tomosynthesis was used in this interpretation. Real-time ultrasound imaging of LEFT breast with imaging documentation. BREAST COMPOSITION: The breasts are heterogeneously dense, which may obscure small masses. FINDINGS: 3D CC/MLO bilateral mammogram images submitted. Posttreatment changes LEFT breast. No architectural distortion or suspicious mass. No suspicious calcifications or adenopathy. Targeted LEFT breast ultrasound performed in the area of concern at 1 o`clock 8 cm from the nipple. Normal fibroglandular tissue is present. No fibrocystic change or mass. IMPRESSION: No suspicious findings. No evidence of malignancy. RECOMMENDATIONS: Routine screening mammography. A lay language report of this examination will be provided to the patient. BI-RADS Category 2: Benign Dictated by Rufino Sarabia MD @ 03/08/2025 11:53:38 AM/CRL:ana rosa MICHAELS/Dictated by: Rufino Sarabia MD @ 03/08/2025 11:53:00 AM (Electronically Signed)
--- NOTE | 2025-03-08 10:15 | CRLHL7_ITS ---
For Patients: As a result of the Century Cures Act, medical imaging exams and procedure reports are released immediately into your electronic medical record. You may view this report before your referring provider. If you have questions, please contact your health care provider. PLEASE SEE BILATERAL BREAST MAMMOGRAM REPORT FOR ULTRASOUND REPORT CRL:ana rosa MICHAELS/Dictated by: Rufino Sarabia MD @ 03/08/2025 11:53:00 AM (Electronically Signed)
== END 2025-03-08 09:49 | disposition home or self-care (01) ==
LOC: MAMMO 09:49
PROVIDERS: PCP Student in an Organized Health Care Education/Training Program; Visit Provider Physician Assistant
DX: C50.912 Malignant neoplasm of unspecified site of left female breast (principal); N64.4 Mastodynia; N63.20 Unspecified lump in the left breast, unspecified quadrant; R92.333 Mammographic heterogeneous density, bilateral breasts
CPT/HCPCS: 76642; 77066; G0279

== ENCOUNTER 2025-05-23 10:40 | Outpatient (RCR) | payer OTHER, SELFPAY ==
--- NOTE | 2025-01-31 09:27 | ONC.NURNOTE ---
Appointment for 01/31 rescheduled to 02/14. Patient saw COMPUTER TRAINER at [facility] on 01/26 for vaginal spotting and an endometrial biopsy was done. Results are pending. Recommendation was also made for a pelvic US which will be done 02/08. Patient continues to hold Tamoxifen pending these results.
--- NOTE | 2025-02-28 11:22 | ONC.NURNOTE ---
Call to patient to see how she is tolerating exemestane. Patient states that she and Tiff had discussed that she would start it after her endometrial biopsy the end of February. Patient scheduled to see Tiff the end of April (05/23) to see how she is tolerating the medication. Patient verbalizes understanding of plan.
== END 2025-08-13 23:59 | disposition home or self-care (01) ==
LOC: CCIC 10:40
PROVIDERS: PCP Student in an Organized Health Care Education/Training Program; Visit Provider Physician Assistant
DX: C50.912 Malignant neoplasm of unspecified site of left female breast (principal); Z17.0 Estrogen receptor positive status [ER+]; Z79.810 Long term (current) use of selective estrogen receptor modulators (SERMs); Z72.0 Tobacco use; N93.9 Abnormal uterine and vaginal bleeding, unspecified
CPT/HCPCS: 99214; G0463